=== PATIENT | male | born 1965 | race Caucasian/White ===

== ENCOUNTER 2024-07-27 02:59 | Day surgery (SDC) | payer OTHER, SELFPAY ==
[2024-07-15 13:53] VITALS: BMI 38.0
--- OUTSIDE RECORDS SUMMARY | 2024-07-27 03:01 | XMS_ITS | CONTINUITY OF CARE DOCUMENT ---
Author Name kyler, kyler Address Unknown Organization [facility] Address [address] [place] [address] Phone [phone] Care Team Providers Care Crayon Sawyer Name Role Phone Brinda BEJARANO, Shanita Unavailable Shanita Parry MD Unavailable PROBLEMS Condition Status Date Provider Notes Family History of Hyperlipidemia: completed - Shanita Parry MD Family History of Hypertension: completed - Shanita Parry MD Other symptoms involving cardiovascular system completed - Shanita Parry MD Palpitations active Shanita Parry MD PAC active Shanita Parry MD HTN essential active Shanita Parry MD Hyperlipidemia active Shanita Parry MD Anxiety active Shanita Parry MD Asthma active Shanita Parry MD GERD active Shanita Parry MD Sleep apnea active Shanita Parry MD ENCOUNTERS Date Type Provider Location Encounter Diag nosis 11/16 - 11/22 In-person encounter Office Visit Shanita Parry MD [facility] 11/11 - 11/18 In-person encounter Office Visit Shanita Parry MD [facility] 11/05 - 11/06 In-person encounter Office Visit Shanita Parry MD [place] [facility] 10/30 - 10/30 In-person encounter Office Visit Shanita Parry MD [facility] 10/31 - 11/01 In-person encounter Office Visit Shanita Parry MD [facility] Family History of Hyperlipidemia:Family History of Hypertension:Other symptoms involving cardiovascular systemSleep apnea 07/23 - 07/24 In-person encounter Office Visit Shanita Parry MD [facility] 05/30 - 05/30 In-person encounter Office Visit Shanita Parry MD [facility] 05/23 - 05/23 In-person encounter Office Visit Shanita Parry MD [facility] PalpitationsPACHTN essentialHyperlipidemiaAnxietyAsthmaGERDSleep apnea VITAL SIGNS Date Observation Value Provider Body Mass Index (Ratio) 34.00 kg/m2 Tasapna Cortes pulse rate 76 /min [facility] blood pressure, diastolic 88 mm[Hg] [facility] 140 mm[Hg] [facility], [facility] 98 % [facility] weight E&M 237 [lb_av] [facility] height E&M 70 [in_i] [facility] Body Mass Index (Ratio) 10.62 kg/m2 Winston Parry MD blood pressure, diastolic 100 mm[Hg] Er ica Sunny blood pressure, systolic 150 mm[Hg] María ca Sunny oxygen saturation, oximetry 98 % Sindi Correa pulse rate 74 /min Sindi Ray Brar weight E&M 74 [lb_av] Sindi Nish- Maykel height E&M 70 [in_i] Sindi Nish- Maykel Body Mass Index (Ratio) 35.29 kg/m2 Manolo Kirkpatrick blood pressure, diastolic 98 mm[Hg] Nsih Portillo blood pressure, systolic 136 mm[Hg] Kenny Portillo oxygen saturation, oximetry 98 % Xenia Portillo respiratory rate E&M 16 /min Xenia [facility] pulse rate 72 /min Xenia [facility] weight E&M 246 [lb_av] Xenia [facility] height E&M 70 [in_i] Xenia [facility] Body Mass Index (Ratio) 34.89 kg/m2 Winston Parry MD blood pressure, cuff size large Te [facility] blood pressure, diastolic 90 mm[Hg] Te [facility] blood pressure, systolic 132 mm[Hg] Brendon keshawn [facility] oxygen saturation, oximetry 97 % [facility] E&M 18 /min [facility] pulse rate 69 /min [facility] blood pressure, resting Yes Praveena usman Afsaneh weight E&M 243.2 [lb_av] Sydnee Frye debbie blood pressure, diastolic 91 mm[Hg] Me nubia Blood blood pressure, systolic 148 mm[Hg] Darcy Blood pulse rate 73 /min Ana Paula Blood oxygen saturation, oximetry 97 % Ana Paula Blood respiratory rate E&M 18 /min Ana Paula Jeremi Body Mass Index (Ratio) 34.58 kg/m2 Genie Blood weight E&M 241.0 [lb_av] Ana Paula Jeremi blood pressure, diastolic 97 mm[Hg] Me arenassa Jeremi blood pressure, systolic 153 mm[Hg] Darcy jonesa Jeremi pulse rate 63 /min Ana Paula Jeremi oxygen saturation, oximetry 99 % Ana Paula Jeremi respiratory rate E&M 18 /min Ana Paula Jeremi Body Mass Index (Ratio) 34.55 kg/m2 Genie Blood weight E&M 240.8 [lb_av] Ana Paula Blood blood pressure, diastolic 110 mm[Hg] Medhat Candelario blood pressure, systolic 160 mm[Hg] Catherine Candelario pulse rate 79 /min Matt Candelario oxygen saturation, oximetry 98 % Matt Candelario respiratory rate E&M 18 /min Matt Candelario Body Mass Index (Ratio) 35.15 kg/m2 Tom Candelario weight E&M 245 [lb_av] Matt Candelario blood pressure, diastolic 84 mm[Hg] ndralessandro Horsedebbie blood pressure, systolic 126 mm[Hg] Hong jelena Horsey pulse rate 66 /min Korina Horsey oxygen saturation, oximetry 98 % Korina Horsey respiratory rate E&M 16 /min Korina Horsey Body Mass Index (Ratio) 35.06 kg/m2 Brenda ra Horsey weight E&M 244.4 [lb_av] Korina Horsey height E&M 70 [in_i] Korina Horsey ALLERGIES Allergy Name Onset Date Reaction Criticality Status AUGMENTIN High Criticality active RESULTS Date Observation Value Provider Reference Range Interpretation Location 9 lipoprotein, beta, serum, point, quantitative, calculated 131 mg/dL [facility] 0-99 High 9 very low density lipoproteins 17 mg/dL [facility] 5-40 9 HDL cholesterol, serum 50 mg/dL [facility] >39 9 triglyceride, serum, random 85 mg/dL [facility] 0-149 9 cholesterol, serum 198 mg/dL [facility] 433-465 4944/07/2 9 alanine aminotransferase (SGPT), serum 12 1/L [facility] 0-44 9 aspartate aminotransferase (SGOT), serum 11 1/L [facility] 0-40 9 alkaline phosphatase, serum 52 1/L [facility] 39-117 9 bilirubin, serum, total 0.7 mg/dL [facility] 0.0-1.2 9 albumin/globulin ratio, serum 2.5 [facility] 1.2-2.2 High 9 globulin, serum 1.7 [facility] 1.5-4.5 9 albumin, serum 4.3 g/dL [facility] 3.8-4.9 9 protein, total, serum 6.0 g/dL [facility] 6.0-8.5 9 calcium, serum 9.6 mg/dL [facility] 8.7-10.2 9 carbon dioxide, venous blood 27 mmol/L [facility] 20-29 9 chloride, serum 103 mmol/L [facility] 96-106 9 potassium, serum 5.2 mmol/L [facility] 3.5-5.2 9 sodium, serum 142 mmol/L [facility] 656-233 2978/07/2 9 urea nitrogen/creatinine ratio, serum 19 [facility] 9-20 9 eGFR if 116 mL/min/{1 .73_m2} [facility] >59 9 eGFR if not 100 mL/min/{1 .73_m2} [facility] >59 9 creatinine, serum 0.84 mg/dL [facility] 0.76-1.27 9 urea nitrogen, blood 16 mg/dL [facility] 6-24 9 blood glucose, random 86 mg/dL [facility] 65-99 9 basophil count, absolute 0.1 x10E3/uL [facility] 0.0-0.2 9 Eosinophil Absolute Count 0.2 X10E3/UL [facility] 0.0-0.4 9 monocyte count, blood, automated 0.4 X10E3/UL [facility] 0.1-0.9 9 lymphocyte count, blood, automated 1.1 X10E3/UL [facility] 0.7-3.1 9 Absolute Neutrophils 2.8 X10E3/UL [facility] 1.4-7.0 9 basophils as percent of blood leukocytes 1 % [facility] Not Estab. 9 eosinophils as percent of blood leukocytes 4 % [facility] Not Estab. 9 monocytes as percent of blood leukocytes 10 % [facility] Not Estab. 9 lymphocytes as percent of blood leukocytes 25 % [facility] Not Estab. 9 neutrophils as percent of blood leukocytes 60 % [facility] Not Estab. 9 platelet count 245 X10E3/UL [facility] 985-211 3221/07/2 9 red blood cell distribution width 12.4 % [facility] 11.6-15.4 9 mean corpuscular hemoglobin concentration, RBC 32.4 G/DL [facility] 31.5-35.7 9 mean corpuscular hemoglobin, RBC 30.6 pg [facility] 26.6-33.0 9 mean corpuscular volume, RBC 95 fL [facility] 79-97 9 hematocrit, blood 44.4 % [facility] 37.5-51.0 9 hemoglobin, blood 14.4 g/dL [facility] 13.0-17.7 9 erythrocyte (RBC) count 4.70 X10E6/UL [facility] 4.14-5.80 9 leukocyte count, blood 4.6 X10E3/UL [facility] 3.4-10.8 HISTORY OF MEDICATION USE Medication Status Instructions Dates Provider Indications Com ments TYLENOL EXTRA STRENGTH 500 MG ORAL TABLET active 2 tabs prn 2 Doreen Block MAGNESIUM 400 MG ORAL CAPS completed one tablet twice daily - 2 Xenia Bandar MULTAQ 400 MG ORAL TABLET completed one tablet once daily - 2 Xenia Portillo MAGNESIUM OXIDE 400 MG ORAL TABLET completed ONE TAB TWICE A DAY 3 - 2 Ana Paula Blood FLECAINIDE 100MG completed Take one BID 3 - 2 Ana Paula Blood CELEBREX 200 MG ORAL CAPSULE completed 2 tablets prn - 2 Doreen Webb NASONEX SUSPENSION active 6 Korina Zimmer SYMBICORT 80-4.5 MCG/ACT INHALATION AEROSOL completed 2 puffs twice daily - 2 Ana Paula Blood CENTRUM ORAL TABLET completed 1 daily - 2 Xenia Portillo MONTELUKAST SODIUM 10 MG ORAL TABLET completed 1 daily - 2 Xenia Hunteruck LANSOPRAZOLE 30 MG ORAL CAPSULE DELAYED RELEASE active one tablet twice daily Ana Paula Blood ADULT ASPIRIN EC LOW STRENGTH 81 MG ORAL TABLET DELAYED RELEASE active 1 daily Korina Zimmer LOSARTAN POTASSIUM 50 MG ORAL TABLET active take one tab po once daily Xenia Portillo SOCIAL HISTORY Date Observation Value Provider Underweight no Herman Cortes social history E&M Regular Exerc ise - yes Smoking History: P jairo has never smoked. Herman Cortes social history reviewed E&M revi ewed - no changes required Herman Cortes smoking status Never smoker Doreen Venecia hodge Underweight yes Shanita hannon MD smoking status Never smoker Sindi Montenegro social history reviewed E&M revi ewed - no changes required Sindi Correa social history reviewed E&M revi ewed - no changes required Shanita Parry MD number of grandchildren Shanita Shelby social history reviewed E&M revi ewed - no changes required Hu Bridges social history E&M Regular Exerc ise - yes Smoking History: P jairo has never smoked. uH Bridges smoking status Never smoker Ana Paula Blood social history reviewed E&M revi ewed - no changes required Shanita Parry MD smoking status Never smoker Ana Paula Blood social history E&M Patient has n ever smoked. R egular Exercise - yes Smoking History: P atvalarie has never smoked. Shanita Parry MD social history reviewed E&M revi ewed - no changes required Shanita Parry MD smoking status Never smoker Shanita watts MD FAMILY HISTORY Family Member Condition Father Family History of Di abetes: Mother Family History of Hy pertension: Mother Family History of Hy perlipidemia: Mother Family History of Di abetes: Mother Family History Breas t Cancer: INSURANCE PROVIDERS Payer name Policy type / Coverage type Gia red democrat ID RANDAL\[facility] [id number] ADVANCE DIRECTIVES Name Date DISCUSSED - NO DECISION MADE TREATMENT PLAN Date Name Performer Electrophysiology : H is updated medication list for this problem includes: Adult Aspirin Ec Low Strength 81 Mg Oral Tablet Delayed Release (Aspirin) ..... 1 daily Losartan Potassium 50 Mg Oral Tablet (Losartan potassium) ..... Take one tab po once daily Orders: 9 9215 HIGH Complex (CPT-67594) C omplete Echo (CPT-85996) S chedule Followup (*) BP today: 140/88 P rior BP: 150/100 (11/11/2018) Labs Reviewed: C reat: 0.84 (11/03/2019) C hol: 198 (11/03/2019) HDL: 50 (11/03/2019) Herman Cortes Electrophysiology :C HOL: 198 (11/03/2019) HDL: 50 (11/03/2019) LDL: 131 (11/03/2019) Herman Cortes Electrophysiology : u ses inhaler prn O rders: F VC - 57488 (85323) F RC - 41140 (34731) D LCO - 89384 (63385) Herman Cortes Electrophysiology :H olter 11/10/2019 I nterpretation: Sinus Rhythm with Supraventricular Ectopics. T here was one run of Atrial Tachycardia noted, which run lasting 6.5 seconds with a max heart r ate of 139 BPM. T here were 2 SVE runs noted, which were 3 beats with the fastest run having a max heart rate o f 134 BPM. S upraventricular ectopy was documented in the form of pairs, 1 bigeminal cycle, trigeminal c ycles, runs, and isolated beats with a burden of 1.7%. T he average heart rate was 68 BPM. T he minimum heart rate was 48 BPM. T he maximum heart rate was 117 BPM. P atient Event Diary submitted with not symptoms noted His updated medication list for this problem includes: Adult Aspirin Ec Low Strength 81 Mg Oral Tablet Delayed Release (Aspirin) ..... 1 daily Herman Cortes Electrophysiology:LD L: 125 T otal cholesterol:201 H DL: 58 T SH: 1.6 O rders: C omplete Echo (CPT-14715) S chedule Followup (*) Shanita Parry MD Electrophysiology: H is updated medication list for this problem includes: Adult Aspirin Ec Low Strength 81 Mg Oral Tablet Delayed Release (Aspirin) ..... 1 daily Losartan Potassium 50 Mg Oral Tablet (Losartan potassium) ..... Take one tab po once daily Orders: 9 15 HIGH Complex (CPT-67519) C omplete Echo (CPT-81974) S chedule Followup (*) Shanita Parry MD Electrophysiology:Uses mouth dev ice Shanita Parry MD Electrophysiology:Uses inhaler P RN Shanita Parry MD Electrophysiology:Sy mptoms better with asthma meds. Please schedule a follow-up appointment with me and ava and 48 hr holter in 1 year. H is updated medication list for this problem includes: Adult Aspirin Ec Low Strength 81 Mg Oral Tablet Delayed Release (Aspirin) ..... 1 daily Shanita Parry MD Electrophysiology:TS H: 1.6, K: 4.2, creatinine: 0.78 H is updated medication list for this problem includes: Adult Aspirin Ec Low Strength 81 Mg Oral Tablet Delayed Release (Aspirin) ..... 1 daily Shanita Parry MD Electrophysiology: T he following medications were removed from the medication list: Multaq 400 Mg Oral Tablet (Dronedarone hcl) ..... One tablet once daily His updated medication list for this problem includes: Adult Aspirin Ec Low Strength 81 Mg Oral Tablet Delayed Release (Aspirin) ..... 1 daily Orders: E KG (CPT-02883) S chedule Followup (*) 9 9215 HIGH Complex (CPT-93489) H olter Monitor 24 Hr (CPT-94900) B ASIC METABOLIC PANEL W/EGFR (62376) L IPID PANEL (7600) Shanita Parry MD Electrophysiology: O rders: 9 9215 HIGH Complex (CPT-22352) H olter Monitor 24 Hr (CPT-53909) B ASIC METABOLIC PANEL W/EGFR (76617) B ASIC METABOLIC PANEL W/EGFR (79119) L IPID PANEL (7600) L IPID PANEL (7600) Shanita Parry MD Electrophysiology:BP today: 136/98 P rior BP: 132/90 (10/30/2016) His updated medication list for this problem includes: Adult Aspirin Ec Low Strength 81 Mg Oral Tablet Delayed Release (Aspirin) ..... 1 daily Losartan Potassium 50 Mg Oral Tablet (Losartan potassium) ..... Take one tab po once daily Shanita Parry MD Cardiology: B P today: 132/90 P rior BP: 148/91 (11/01/2015) Shanita Parry MD Cardiology: O rders: S leep Study (CPT-58724) Shanita Parry MD Cardiology:EKG today shows NSR. His updated medication list for this problem includes: Multaq 400 Mg Oral Tabs (Dronedarone hcl) ..... One tablet once daily Adult Aspirin Ec Low Strength 81 Mg Oral Tbec (Aspirin) ..... 1 daily Shanita Parry MD Cardiology faxed 10/06 12/21:BP today: 148/91 P rior BP: 153/97 (07/24/2015) His updated medication list for this problem includes: Adult Aspirin Ec Low Strength 81 Mg Oral Tbec (Aspirin) ..... 1 daily Losartan Potassium 25 Mg Oral Tabs (Losartan potassium) ..... 1 daily Hu Bridges Cardiology faxed 10/06 12/21:He prefers a dental device and we are arranging that. Hu Brid[facility] faxed 10/06 12/21: H is updated medication list for this problem includes: Multaq 400 Mg Oral Tabs (Dronedarone hcl) ..... One tablet once daily Adult Aspirin Ec Low Strength 81 Mg Oral Tbec (Aspirin) ..... 1 daily Shanita Parry MD Cardiology faxed 10/06 12/21: O rders: Tyesha KG (CPT-02380) S chedule Followup (*) Shanita Parry MD EP faxed 07/26/15:in 3 months with SK His updated medication list for this problem includes: Adult Aspirin Ec Low Strength 81 Mg Oral Tbec (Aspirin) ..... 1 daily Shanita Parry MD EP faxed 07/26/15:in 3 months with SK O rders: 9 9213 LTD. Complex (CPT-42226) Shanita Parry MD EP:Will start on Fle cainide 100mg BID and magnesium 400mg BID Caro Candelario REJECTOR EP:patient will be s tarted on CPAP at 5cmH2o and will see how he does, before he can have a titration study. Caro Candelario REJECTOR EP initial consult F axed 03/23/15 1046: B P today: 126/84 Shanita Parry MD Date Name DLCO - 71529 FRC - 66158 FVC - 49257 Complete Echo TSH, free T4, total T3 CBC (INCLUDES DIFF/P LT) COMPREHENSIVE METABO LIC PANEL, W/EGFR Holter Monitor 48 hr Complete Echo LIPID PANEL BASIC METABOLIC PANE L W/EGFR LIPID PANEL BASIC METABOLIC PANE L W/EGFR Holter Monitor 24 Hr Complete Echo Mobile Cardiac Tele Sleep Study DLCO - 85623 FRC - 24411 FVC - 32423 Complete Echo Holter Monitor 24 Hr Holter Monitor 24 Hr Holter Monitor 24 Hr Sleep Study Home HISTORY OF PROCEDURES Procedure Date Procedure Name Provider Procedure Notes S tatus FVC / MVV - 07466 Shanita marr MD completed FRC - 91255 Shanita jennings MD completed SpO2 w/o 6min walk/titration Shanita Parry MD completed DLCO - 21051 Shanita jennings MD completed Schedule Followup Shanita marr MD 1y SK completed EKG Shanita jennings MD completed Schedule Followup Shanita marr MD Please schedule a follow-up appointment with me and echo and 48 hr holter in 1 year. completed EKG Shanita jennings MD completed Schedule Followup Shanita marr MD in 1 yr completed EKG Shanita jennings MD completed Event Monitor Shanita jennings MD completed EKG Shanita jennings MD completed SNOMED-CT: 898899887154334 Current Medications Documented Shanita Parry MD completed Holter, 24 or 48 Shanita hannon MD completed Schedule Followup Shanita marr MD 1 year completed EKG Shaniat jennings MD completed SNOMED-CT: [id number] Current Medications Documented Shanita Parry MD completed Holter, 24 or 48 Shanita hannon MD completed Schedule Followup Shanita marr MD in 3 months with SK completed EKG Shanita jennings MD completed SNOMED-CT: [id number] Current Medications Documented ulius Brinda BEJARANO completed EKG Shanita jennings MD completed SNOMED-CT: 522608130196820 Current Medications Documented Saulius Kalvaitis MD completed SNOMED-CT: [id number] Physical Exam, Performed: Pulse Exam of Foot Shanita Parry MD completed EKG Shanita jennings MD completed SNOMED-CT: 434840554222462 Current Medications Documented Shanita Parry MD completed
--- OUTSIDE RECORDS SUMMARY | 2024-07-27 03:01 | XMS_ITS | Clinical Summary ---
Author Organization [address] [place] [address] Care Team Providers Care Parachute Supervisor Name Role Phone Unavailable Primary Care Provider Unavailabl e Allergies Active Allergy Reactions Criticality Noted Date Comments Amoxicillin-Pot Clavulanate Diarrhea 10/15/19 19 Medications losartan (COZAAR) 50 mg tablet 09/05/2018 Active lansoprazole (PREVACID) 30 mg Capsule, Delayed Release(E.C.) 09/05/2018 Activ e mometasone (NASONEX) 50 mcg/actuation [place], Non-Aerosol 10/13/2018 Active aspirin (WESTLEY CHEWABLE) 81 mg Tablet, Chewable Take 81 mg by mouth daily. Active Active Problems No known active problems Family History Medical History Relation Name Comments Diabetes Father Heart Attack Maternal Grandfather Breast Cancer Mother Diabetes Mother Relation Name Status Comments Father Maternal Grandfather Mother Social History Tobacco Use Types Packs/Day Years Used Date Smoking Tobacco: Never Smokeless Tobacco: Never Alcohol Use Standard Drinks/Week Comments Yes 0 (1 standard drink = 0.6 oz pur e alcohol) Sex and Gender Information Value Date Recorded Sex Assigned at Not on file Legal Sex Male 10:30 PM CDT Gender Identity Not on file Sexual Orientation Not on file Last Filed Vital Signs Vital Sign Reading Time Taken Comments Blood Pressure 139/94 10/14/2018 2:54 PM CDT Pulse 77 10/14/2018 2:54 PM CDT Temperature - - Respiratory Rate - - Oxygen Saturation - - Inhaled Oxygen Concentration - - Weight 115.3 kg (254 lb 3.2 oz) 10/14/2018 2:54 PM CDT Height 177.8 cm (5' 10 ) 10/14/2018 2:54 PM CDT Body Mass Index 36.47 10/14/2018 2:54 PM CDT Plan of Treatment Health Maintenance Due Date Last Done Comments DTAP/TDAP/TD VACCINES (1 - Tdap) 1985 HEPATITIS B VACCINES (1 of 3 - 19+ 3-dose series) 06/06 COLORECTAL SCREENING 07/02/2011 Colorectal Cancer Screening 07/02/2011 FIT-DNA Q 3 years 07/02/2011 FIT/FOBT Q 1 year 07/02/2011 Flex Sig/CT Colonography Q 5 years 07/02/2011 ZOSTER VACCINE (1 of 2) 2016 INFLUENZA VACCINE (#1) 2023 [facility]
--- OUTSIDE RECORDS SUMMARY | 2024-07-27 03:01 | XMS_ITS | Continuity of Care Document ---
Author Organization [facility] Address [address] Agustin [address] [place] [phone] Phone Care Team Providers Care Child Psychology Teacher Name Role Phone Adam BEJARANO FACS, Trevin Gallagher Unavailab le Allergies, Adverse Reactions, Alerts Substance Reaction Status Criticality No Known Allergies Active No Inform ation Medications Medication Instructions Dosage Effective Dates (start - stop) Status Comments Nasonex 50 mcg/actuation Bland spray 2 spray by intranasal route every day in each nostril - Active Patanol 0.1 % eye drops instill 1 drop by ophthalmic route 2 times every day into affected eye(s) at an interval of 6 to 8 hours - Active alprazolam 0.25 mg tablet take 1 tablet by oral route 3 times every day 0.25 MG - Active Magnesium (oxide/AA chelate) 300 mg capsule - Active Multaq 400 mg tablet take 1 tablet by oral route 2 times every day with morning and evening meals 400 MG - Active lansoprazole 30 mg capsule,delayed release take 1 capsule by oral route every day before a meal 30 MG - Active montelukast 10 mg tablet take 1 tablet by oral route every day in the evening 10 MG - Active losartan 25 mg tablet take 1 tablet by oral route every day 25 MG - Active aspirin 81 mg chewable tablet chew 1 tablet by oral route every day 81 MG - Active celecoxib 200 mg capsule take 1 capsule by oral route 2 times every day as needed 200 MG - Active PROAIR RESPICLICK (unknown strength) inhale 2 puff by inhalation route every 4 - 6 hours as needed Not Available - Active Procedures Procedure Date After Cataract Laser Surgery No Charge Refraction No Charge Optomap Fundus Photos 016 Eye Exam, New Patient Remove Cataract, Insert Lens Post-op Follow-up Visit Office Consultation [facility] Advance Directives Directive Yes / No Effective Date File Name No Information Encounters Encounter Description Practice Location Reason(s) For Visit Diagnoses Date Provider Providers Copied on Encounter [facility], [address] [place] [address] [address], [place], [place], [id number], tel:[phone] [facility] Professional Yag PC eval (chief complaint) Other secondary cataract, right eye Oct-201 6 Adam Trevin. [address] [place] [address] Sudiksha [facility], [address], [place], [place], [id number], [place]. tel:[phone] Referring Provider: Anastacio Castro OD, [address] [facility], [place], [address]. tel:[phone] [facility], [address] [place] [address] [address], [place], [place], [id number], tel:[phone] [facility] No Information May-0 9-200 8 Kyle Jordyn. [address] , [address], [place], [address], [place]. tel:[phone] Referring Provider: Anastacio Castro OD, [address] [facility], [place], [address]. tel:[phone] [facility], [address] [place] [address] [address], [place], [place], [id number], tel:[phone] [facility] No Information May-0 8-200 8 Staley OD Rafiq. [address] , [address], [place], [address], [place]. tel:[phone] Office Consultation [facility], [address], [place], [place], [id number], [place] tel:[phone] [facility] [place] No Information 9-200 8 Kyle Jordyn. [address], [address], [place], [address], [place]. tel:[phone] Family History Family Member Type Diagnosis Age At Onset Mother Problem (finding) Retinal disease Mother Problem (finding) glaucoma Mother Problem (finding) Diabetes mellitus Payers Payer name Insurance type Covered alliance party ID Authortara sanderson(s) [place] [id number] Social History Type Description Quantity Date Captured Comments Alcohol Use Details Caffeine Use Details coffee 2 cups per day Tobacco Use Status No Information Smoking Status Never smoker Non-Smoking Tobacco Use Details : No Details Available : No Details Available Sex Female Chief Complaint And Reason For Visit From encounter dated '01/16/2016 13:15'. Yag PC eval (chief complaint). Description: The 50 year old female presents for Yag PC eval in the right eye. Pt states VA blurry, like looking through a fog. Pt states difficult to drive at night due to headlight glare, having to get closer to street signs to see them clearly, difficult to see TV,and difficult to see small print. OD DV and NV gradual decrease, worse x 2-3mos. Pt uses Patanol OUQwks and AFT OU PRN. Reason For Referral Reason For Referral No Information History Of Present Illness Encounter Date Complaint History Of Prese nt Illness Yag PC eval The 50 year old female presents for Yag PC eval in the right eye. Pt states VA blurry, like looking through a fog. Pt states difficult to drive at night due to headlight glare, having to get closer to street signs to see them clearly, difficult to see TV, and difficult to see small print. OD DV and NV gradual decrease, worse x 2-3mos. Pt uses Patanol OU Qwks and AFT OU PRN. Functional Status Date Functional Assessmen t No Information Instructions Date Instruction Additional Infor andrea Impression/Plan - Di scussed diagnosis with patient. PCF is the cause of the patients visual complaints and YAG PC OD understood for treatment, will proceed with laser treatment today. Pt should return to referring in 2-4 weeks. Letter generated and sent to Dr. Castro Other secondary petar ract, right eye - Surgery advised; risks, benefits, alternatives discussed. Related to Other secondary cataract, right eye Assessments Type Assessment Date assessment Other secondary cataract, right eye Patient Care Teams Name Effective Dates (start - stop) Status Members No Information
--- OUTSIDE RECORDS SUMMARY | 2024-07-27 03:01 | XMS_ITS | Clinical Summary ---
Author Organization [facility] Address [address] [place] [address] Care Team Providers Care Corporate Aircraft Mechanic Name Role Phone Unavailable Primary Care Provider Unavailabl e Source Comments [facility],non-owned Affiliates and Associated Physician Practices is amultiple site organization consisting of ambulatory clinics and hospital sitesin [place], [place], [place] and [place]. This disclosure is being madepursuant to the Care Everywhere program and may not contain all information available regarding this patient. 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 Gender Identity Not on file Sexual Orientation Not on file Plan of Treatment Health Maintenance Due Date Last Done Comments COLOGUARD (AGES 45-75) - COL ON CA SCREENING 1966 COLON MONITORING 1966 COLONOSCOPY - COLON CA SCREENING 1966 CT COLONOGRAPHY - COLON CA SCREENING 1966 Colorectal Cancer Screening 1966 FIT - COLON CA SCREENING 1966 FLEX SIG - COLON CA SCREENING 1966 LIPID TESTING 1966 HIV SCREENING 1981 HEPATITIS C SCREENING 06/26/1984 DTAP/TDAP/TD VACCINES (1 - Tdap) 1985 HEPATITIS B VACCINE (1 of 3 - 19+ 3-dose series) 1985 PNEUMOCOCCAL VACCINE 50+ (1 of 1 - PCV) 2016 ZOSTER VACCINE (1 of 2) 2016 COVID-19 VACCINE ( - 2023-2 5 season) 2023 DEPRESSION SCREENING 04/07/2024 INFLUENZA VACCINE (Season Ended) 2024 HIB VACCINE Aged Out No longer eligi ble based on patient's age to complete this topic HPV VACCINE Aged Out No longer eligi ble based on patient's age to complete this topic MENINGOCOCCAL (Group B) VACC INE SHARED DECISION-MAKING Aged Out No longer eligibl e based on patient's age to complete this topic MENINGOCOCCAL GROUPS A/C/Y/W VACCINE Aged Out No longer eligible b ased on patient's age to complete this topic PNEUMOCOCCAL VACCINE Aged Out No long er eligible based on patient's age to complete this topic [facility]
--- OUTSIDE RECORDS SUMMARY | 2024-07-27 03:01 | XMS_ITS | Clinical Summary ---
Author Organization [facility] Address [facility] [place] [address] Care Team Providers Care Laundry Agent Name Role Phone Mago San Abraham [facility] Primary Care Provider + Social History Tobacco Use Types Packs/Day Years Used Date Smoking Tobacco: Never Assessed Sex and Gender Information Value Date Recorded Sex Assigned at Not on file Legal Sex Male 6:54 PM CDT Gender Identity Not on file Sexual Orientation Not on file Plan of Treatment Health Maintenance Due Date Last Done Comments Colorectal Cancer Screening Colonoscopy (10 Years) 1966 Annual Physical 1969 Hepatitis C 1984 Hepatitis B Vaccines (1 of 3 - 19+ 3-dose series) 1985 Pneumococcal Vaccine: 50+ Ye ars (1 of 1 - PCV) 2016 Zoster Vaccines (1 of 2) 2016 DTaP, Tdap and Td Vaccines ( 2 - Td or Tdap) 02/05/2022 02/06/2012 COVID-19 Vaccine ( - 2023-2 5 season) 2023 Meningococcal B Vaccine Aged Out No l onger eligible based on patient's age to complete this topic Meningococcal Vaccine Aged Out No jesus manuel deborah eligible based on patient's age to complete this topic RSV Immunizations Under 20 Months Aged Out No longer eligible based on patient's age to complete this topic Insurance [facility] Care Teams Laundry Agent Relationship Specialty Start Date End Date Mago San, TRANSIT MECHANIC- [address] [place] [phone] PCP - General NURSE PRACTITIONER 05/18/18
--- OUTSIDE RECORDS SUMMARY | 2024-07-27 03:02 | XMS_ITS | Data Portability ---
Author Organization [facility], Main Office Address [address] [place] [address] Care Team Providers Care Slate Trimmer Name Role Phone JALEEL KOENIG Primary Care Provider Assessment Encounter Date Assessment Date Assessment LastModified by Organization Details LastModified Time 08/13/2022 08/13/2022 colonoscopy due 2023 for the 6 yr fu. Not available 08/21/2022 07:27:41 Plan of Treatment Reminders Order Date Submit Date Provider Last Modified By Organization Details Last Modified Time Details Appointments None recorded. Lab HbA1c (hemoglobin A1c), blood 2023 024 [employer] [facility], [address], [address], 19:44:53 CMP, serum or plasma 2023 024 [employer] [facility], [address], [address], 19:44:51 TSH, serum or plasma 2023 024 [employer] [facility], [address] [employer] [address], [address], 4 19:44:52 CBC w/ auto diff 2023 024 [employer] [facility], [address], [address], 4 19:44:51 lipid panel, serum 2023 024 [facility], [address], [address], 4 19:44:50 PSA, serum or plasma 2023 024 [facility], [address], [address], 4 19:44:52 testosteron e, free + total, serum 2023 024 [facility], [address], [address], 4 19:44:50 TSH, serum or plasma [address] (Lab), [address] [place], [address], 3 08:48:00 TSH, serum or plasma 2022 023 [facility], [address], [address], 3 18:16:24 lipid panel, serum 2022 023 [facility], [address], [address], 3 18:16:20 CBC w/ auto diff [address] (Lab), [address] [place], [address], 3 08:47:59 CBC w/ auto diff 2022 023 [employer] [facility], [address], [address], 3 18:16:23 testosteron e, free + total, serum [address] (Lab), [address] [place], [address], 3 08:48:00 testosteron e, free + total, serum 2022 023 [employer] [facility], [address], [address], 3 18:16:21 glycohemogl obin, total, blood [address] (Lab), [address] [place], [address], 3 08:48:00 CMP, serum or plasma [address] (Lab), [address] [place], [address], 3 08:48:00 CMP, serum or plasma 2022 023 [employer] [facility], [address], [address], 3 18:16:22 HbA1c (hemoglobin A1c), blood 2022 023 [employer] [facility], [address], [address], 3 18:16:25 Referral orthopedic surgeon referral - Pain in left elbow and it's 'locking'. Injection? 2022 023 [email or web address], [address] [address] , [place] [address], [place], [address], 3 19:02:59 Procedures None recorded. Surgeries None recorded. Imaging polysomnogr am, split night - *Please call pt to schedule* 2023 024 [email or web address] [address] [facility] ([facility] [address] [place], [address], 4 09:42:15 Medication Orders ProAir HFA 90 mcg/actuati on aerosol inhaler 2023 024 [facility] [place], [address], 4 11:33:34 Symbicort 80 mcg-4.5 mcg/actuati on HFA aerosol inhaler 2023 024 [facility], [address], 4 11:29:35 losartan 50 mg tablet 2023 024 [facility], [address], 4 10:50:11 cyclobenzap rine 5 mg tablet [address] [facility], [address], 4 09:45:17 tramadol 50 mg tablet 2023 024 [id number], [address] [place], [place], [id number], 4 09:45:24 alprazolam 0.25 mg tablet [address] [facility], [address], 3 07:20:12 Symbicort 80 mcg-4.5 mcg/actuati on HFA aerosol inhaler 2022 023 [facility], [facility], [place] Quach, [address], 3 07:20:12 losartan 50 mg tablet [address] [facility], [facility], [place], [address], 3 07:20:09 Patient TargetsNo targets recorded. Patient Instructions Encounter Date Encounter Id Patient Instructions Last Modified By Organization Details Last Modified Time 08/13/2022 [id number] Fu in 6 mo for htn, joint pain, gerd, asthma, anxiety Not available 08/21/2022 07:27:08 Reason for Referral Orthopedic Surgeon Referral for Pain of left elbow joint Pain in left elbow and it's 'locking'. Injection? Referring Physician: Mago San, Family Medicine, Encounter Date: 08/13/2022 Results Created Date Observation Date Name Description Value Unit Range Abnormal Flag Note LastModifiedBy Organization Detail LastModifiedTime 02/08/2002/07/2021 HEMOG LOBIN A1C HA1C 5.5 % 4.0-6. 0 Diabe minnie Scree rylee Crite marii: <5.7% Consi stent with absen ce of diabe minnie 5.7-6 .4% Consi stent with incre ased risk for diabe minnie (pred iabet es) >OR=6 .5% Consi stent with diabe minnie REFER ENCE: Diabe minnie Care 2016, 39(Houser ppl.1 ):s13 -s22 Not Available [facility] (Lab) [address] [place], [address], 02/07/2021 15:07:19 02/08/20 21 02/07/2021 TSH W/REF CALI FT4 TSH with reflex free T4 1.530 uIU/m L 0.465- 4.680 Not Available [facility] (Lab) [address] [place], [address], 02/07/2021 14:58:00 02/08/20 21 02/07/2021 PSA SCREE N PSA medicare screen 0.97 NG/mL 0.00-4 .00 Not Available [facility] (Lab) [address] [place], [address], 02/07/2021 14:57:55 02/08/20 21 02/07/2021 COMPR EHENS MAINE METAB OLIC PANEL chloride 103 mmol/ L 98-107 Not Available [facility] (Lab) [address] [place], [address], 02/07/2021 14:11:10 02/08/20 21 02/07/2021 COMPR EHENS MAINE METAB OLIC PANEL carbon dioxide 30 mmol/ L 22-30 Not Available [facility] (Lab) [address] [place], [address], 02/07/2021 14:11:10 02/08/20 21 02/07/2021 COMPR EHENS MAINE METAB OLIC PANEL agap 11.6 mmol/ L 14-22 low Not Available [facility] (Lab) [address] [place], [address], 02/07/2021 14:11:10 02/08/20 21 02/07/2021 COMPR EHENS MAINE METAB OLIC PANEL glucose 92 mg/dL 70-99 Not Available [facility] (Lab) [address] [place], [address], 02/07/2021 14:11:10 02/08/20 21 02/07/2021 COMPR EHENS MAINE METAB OLIC PANEL BUN 18 mg/dL 8-19 Not Available [facility] (Lab) [address] [place], [address], 02/07/2021 14:11:10 02/08/20 21 02/07/2021 COMPR EHENS MAINE METAB OLIC PANEL creatinine 0.69 mg/dL 0.66-1 .25 Not Available [facility] (Lab) [address] [place], [address], 02/07/2021 14:11:10 02/08/20 21 02/07/2021 COMPR EHENS MAINE METAB OLIC PANEL GFR >60 Refer ence Range : Rogers ge GFR Healt hy Adult : >60 mL/mi n/1.7 3 m2 Chron ic Kidne y Disea se: 15-60 mL/mi n/1.7 3 m2 Kidne y Failu re: <15/m L/min /1.73 m2 www.n iddk. nih.g ov MDRD study equat ion hasn' t been valid ated in child tam <18 yrs of age, pregn ant women , the elder ly >85 yrs of age, or in some racia l or ethni c subgr oups, such as Hisla nics. Outsi de the valid ated paulina eters , estim ated GFR is less accur ate requi ring clini glenn judgm ent on a case by case basis . Clini glenn inter preta tion for other races and ages must be made by the clini vicki . Futhe rmore , any of the limit ation s with the use of serum creat inine relat ed to nutri cha l statu s or medic ation usage hasn' t accou nted for the MDRD Study equat ion. For perso ns <18 yrs of age, a pedia tric GFR calcu lator can be locat ed on the F websi te: https ://jackson w.kid sandy.o rg/pr ofess ional s/kdo qi/gf r_cal culat or Not Available [facility] (Lab) [address] [place], [address], 02/07/2021 14:11:10 02/08/20 21 02/07/2021 COMPR EHENS MAINE METAB OLIC PANEL alkaline phosphatase 58 U/L 38-126 Not Available [facility] (Lab) [address] [place], [address], 02/07/2021 14:11:10 02/08/20 21 02/07/2021 COMPR EHENS MAINE METAB OLIC PANEL alanine aminotransfe rase 23 U/L 0-50 Not Available [facility] (Lab) [address] [place], [address], 02/07/2021 14:11:10 02/08/20 21 02/07/2021 COMPR EHENS MAINE METAB OLIC PANEL aspartate aminotransfe rase 27 U/L 15-46 Not Available [facility] (Lab) [address] [place], [address], 02/07/2021 14:11:10 02/08/20 21 02/07/2021 COMPR EHENS MAINE METAB OLIC PANEL bilirubin, total 0.50 mg/dL 0.20-1 .30 Not Available [facility] (Lab) [address] [place], [address], 02/07/2021 14:11:10 02/08/20 21 02/07/2021 COMPR EHENS MAINE METAB OLIC PANEL calcium 9.4 mg/dL 8.4-10 .2 Not Available [facility] (Lab) [address] [place], [address], 02/07/2021 14:11:10 02/08/20 21 02/07/2021 COMPR EHENS MAINE METAB OLIC PANEL total protein 6.5 g/dL 6.3-8. 2 Not Available [facility] (Lab) [address] [place], [address], 02/07/2021 14:11:10 02/08/20 21 02/07/2021 COMPR EHENS MAINE METAB OLIC PANEL albumin 4.1 g/dL 3.4-5. 0 Not Available [facility] (Lab) [address] [place], [address], 02/07/2021 14:11:10 02/08/20 21 02/07/2021 COMPR EHENS MAINE METAB OLIC PANEL globulin 2.4 g/dL 2.6-4. 2 low Not Available [facility] (Lab) [address] [place], [address], 02/07/2021 14:11:10 02/08/20 21 02/07/2021 COMPR EHENS MAINE METAB OLIC PANEL A/G ratio 1.7 ratio 1.0-2. 0 Not Available [facility] (Lab) [address] [place], [address], 02/07/2021 14:11:10 02/08/20 21 02/07/2021 COMPR EHENS MAINE METAB OLIC PANEL sodium 140 mmol/ L 137-14 5 Not Available [facility] (Lab) [address] [place], [address], 02/07/2021 14:11:10 02/08/20 21 02/07/2021 COMPR EHENS MAINE METAB OLIC PANEL potassium 4.6 mmol/ L 3.5-5. 1 Not Available [facility] (Lab) [address] [place], [address], 02/07/2021 14:11:10 02/08/20 21 02/07/2021 LIPID PANEL cholesterol 209 mg/dL 140-19 9 high NIH ROSSY NSUS RECOM MENDA TION FOR SHERICE STERO L: ADULT CHILD LOW RISK: <200 <170 BORDE RLINE : <200- 239 ----- HIGH RISK: >240 >200 Not Available [facility] (Lab) [address] [place], [address], 02/07/2021 14:11:05 02/08/20 21 02/07/2021 LIPID PANEL triglyceride s 59 mg/dL 0-150 NIH ROSSY NSUS REPOR T RECOM MENDA TION FOR TRIGL YCERI JILLIAN: ADULT CHILD LOW RISK: <150 ----- BODER LINE: 150-1 99 ----- HIGH RISK: >200 ----- Not Available [facility] (Lab) [address] [place], [address], 02/07/2021 14:11:05 02/08/20 21 02/07/2021 LIPID PANEL HDL cholesterol 57 mg/dL 40- Not Available [facility] (Lab) [address] [place], [address], 02/07/2021 14:11:05 02/08/20 21 02/07/2021 LIPID PANEL LDL cholesterol, calculated 140 mg/dL 0-130 high NIH ROSSY NSUS REPOR T RECOM MENDA TIONS FOR LDL: ADULT CHILD LOW RISK <130 <110 (OPTI MAL LDL) <100 ----- BORDE RLINE : 130-1 59 ----- HIGH RISK: >160 >130 A TRIGL YCERI DE RESUL T >400 INVAL IDATE S THE CALCU LATIO N FOR LDL FRACT IONAT ION - THE LDL RESUL T WILL NOT BE REPOR MACO. Not Available [facility] (Lab) [address] [place], [address], 02/07/2021 14:11:05 02/08/20 21 02/07/2021 CBC/C OMPLE TE BLD COUNT W/DIF F white blood cells 5.0 x10'3 /uL 4.2-10 .8 Not Available [facility] (Lab) [address] [place], [address], 02/07/2021 13:56:59 02/08/20 21 02/07/2021 CBC/C OMPLE TE BLD COUNT W/DIF F red blood cells 4.92 x10'6 /uL 4.10-5 .80 Not Available [facility] (Lab) [address] [place], [address], 02/07/2021 13:56:59 02/08/20 21 02/07/2021 CBC/C OMPLE TE BLD COUNT W/DIF F hemoglobin 15.1 g/dL 13.2-1 7.0 Not Available [facility] (Lab) [address] [place], [address], 02/07/2021 13:56:59 02/08/20 21 02/07/2021 CBC/C OMPLE TE BLD COUNT W/DIF F hematocrit 45.8 % 39.3-5 0.0 Not Available [facility] (Lab) [address] [place], [address], 02/07/2021 13:56:59 02/08/20 21 02/07/2021 CBC/C OMPLE TE BLD COUNT W/DIF F mean red cell volume 93.1 fL 80.0-9 7.0 Not Available [facility] (Lab) [address] [place], [address], 02/07/2021 13:56:59 02/08/20 21 02/07/2021 CBC/C OMPLE TE BLD COUNT W/DIF F mean red cell hemoglobin 30.7 pg 27.0-3 3.0 Not Available [facility] (Lab) [address] [place], [address], 02/07/2021 13:56:59 02/08/20 21 02/07/2021 CBC/C OMPLE TE BLD COUNT W/DIF F mean RBC HGB concentratio n 33.0 g/dL 31.0-3 6.0 Not Available [facility] (Lab) [address] [place], [address], 02/07/2021 13:56:59 02/08/20 21 02/07/2021 CBC/C OMPLE TE BLD COUNT W/DIF F red cell distribution width 13.2 % 11.8-1 5.5 Not Available [facility] (Lab) [address] [place], [address], 02/07/2021 13:56:59 02/08/20 21 02/07/2021 CBC/C OMPLE TE BLD COUNT W/DIF F platelets 235 x10'3 /uL 150-40 0 Not Available [facility] (Lab) [address] [place], [address], 02/07/2021 13:56:59 02/08/20 21 02/07/2021 CBC/C OMPLE TE BLD COUNT W/DIF F mean platelet volume 10.2 fL 9.0-12 .4 Not Available [facility] (Lab) [address] [place], [address], 02/07/2021 13:56:59 02/08/2002/07/2021 CBC/C OMPLE TE BLD COUNT W/DIF F neutrophils 54.5 % 39.0-7 2.0 Not Available [facility] (Lab) [address] [place], [address], 02/07/2021 13:56:59 02/08/2002/07/2021 CBC/C OMPLE TE BLD COUNT W/DIF F lymphocytes 27.3 % 16.0-4 7.0 Not Available [facility] (Lab) [address] [place], [address], 02/07/2021 13:56:59 02/08/2002/07/2021 CBC/C OMPLE TE BLD COUNT W/DIF F monocytes 11.0 % 5.0-12 .0 Not Available [facility] (Lab) [address] [place], [address], 02/07/2021 13:56:59 02/08/20 21 02/07/2021 CBC/C OMPLE TE BLD COUNT W/DIF F eosinophils 5.6 % 1.0-7. 0 Not Available [facility] (Lab) [address] [place], [address], 02/07/2021 13:56:59 02/08/20 21 02/07/2021 CBC/C OMPLE TE BLD COUNT W/DIF F basophils 1.4 % 0.0-2. 0 Not Available [facility] (Lab) [address] [place], [address], 02/07/2021 13:56:59 02/08/20 21 02/07/2021 CBC/C OMPLE TE BLD COUNT W/DIF F immature granulocytes 0.2 % 0.00-0 .50 Not Available [facility] (Lab) [address] [place], [address], 02/07/2021 13:56:59 02/08/20 21 02/07/2021 CBC/C OMPLE TE BLD COUNT W/DIF F neutrophils, absolute count 2.73 x10'3 /uL 1.5-8. 0 Not Available [facility] (Lab) [address] [place], [address], 02/07/2021 13:56:59 02/08/20 21 02/07/2021 CBC/C OMPLE TE BLD COUNT W/DIF F lymphocytes, absolute count 1.37 x10'3 /uL 1.07-3 .43 Not Available [facility] (Lab) [address] [place], [address], 02/07/2021 13:56:59 02/08/20 21 02/07/2021 CBC/C OMPLE TE BLD COUNT W/DIF F monocytes, absolute count 0.55 x10'3 /uL 0.29-0 .99 Not Available [facility] (Lab) [address] [place], [address], 02/07/2021 13:56:59 02/08/20 21 02/07/2021 CBC/C OMPLE TE BLD COUNT W/DIF F eosinophils, absolute count 0.28 x10'3 /uL 0.02-0 .53 Not Available [facility] (Lab) [address] [place], [address], 02/07/2021 13:56:59 02/08/20 21 02/07/2021 CBC/C OMPLE TE BLD COUNT W/DIF F basophils, absolute count 0.07 x10'3 /uL 0.01-0 .08 Not Available [facility] (Lab) [address] [place], [address], 02/07/2021 13:56:59 02/08/20 21 02/07/2021 CBC/C OMPLE TE BLD COUNT W/DIF F immature granulocytes ,absolute 0.01 x10'3 /uL 0.00-0 .05 Not Available [facility] (Lab) [address] [place], [address], 02/07/2021 13:56:59 02/08/20 21 02/07/2021 CBC/C OMPLE TE BLD COUNT W/DIF F nucleated red blood cells 0.0 % -0 Not Available [facility] (Lab) [address] [place], [address], 02/07/2021 13:56:59 02/08/20 21 02/07/2021 CBC/C OMPLE TE BLD COUNT W/DIF F NRBC# 0.00 x10'3 /uL Not Available [facility] (Lab) [address] [place], [address], 02/07/2021 13:56:59 08/23/19 23 08/26/2022 LIPID PANEL , STAND GERRI cholesterol, total 203 mg/dL <200 high Not Available [employer] [facility] [address] [place], [place] [address], [address], 08/26/2022 18:16:20 08/23/19 23 08/26/2022 LIPID PANEL , STAND GERRI HDL cholesterol 57 mg/dL > or = 40 normal Not Available [employer] [facility] [address] [place] [address], [address], 08/26/2022 18:16:20 08/23/19 23 08/26/2022 LIPID PANEL , STAND GERRI triglyceride s 128 mg/dL <150 normal Not Available [address], [address], 08/26/2022 18:16:20 08/23/19 23 08/26/2022 LIPID PANEL , STAND GERRI LDL-choleste rol 122 mg/dL _(glenn c) high Refer ence range : <100 Rojas able range <100 mg/dL for prima ry preve ntion ; <70 mg/dL for patie nts with CHD or diabe tic patie nts with > or = 2 CHD risk facto rs. LDL-C is now calcu lated using the Debra n-Hop kins calcu danielle n, which is a valid ated novel metho d provi ding eleanor r accur acy than the Fried jose equat ion in the estim ation of LDL-C . Debra rich SS et al. EDIL. 2013; 310(1 9): 2061- 2068 (http ://ed ucati on.Qu [employer]. Rent.com/f aq/FA Q164) Not Available [address] [address] [place], [address], 08/26/2022 18:16:20 08/23/19 23 08/26/2022 LIPID PANEL , STAND GERRI chol/HDLC ratio 3.6 (calc ) <5.0 normal Not Available [employer] [address] [place] [address] [place], [address], 08/26/2022 18:16:20 08/23/19 23 08/26/2022 LIPID PANEL , STAND GERRI non HDL cholesterol 146 mg/dL _(glenn c) <130 high For patie nts with diabe minnie plus 1 major ASCVD risk facto r, treat ing to a non-H DL-C goal of <100 mg/dL (LDL- C of <70 mg/dL ) is consi dered a thera peuti c optio n. Not Available [employer] [facility] [address] [place], [address], 08/26/2022 18:16:20 08/23/19 23 08/26/2022 TESTO STERO NE, FREE, BIOAV AILAB LE AND TOTAL , MS albumin 4.1 g/dL 3.6-5. 1 Not Available [address], [address], 08/26/2022 18:16:21 08/23/19 23 08/26/2022 TESTO STERO NE, FREE, BIOAV AILAB LE AND TOTAL , MS sex hormone binding globulin 32.2 nmol/ L - Not Available [address], [address], 08/26/2022 18:16:21 08/23/19 23 08/26/2022 TESTO STERO NE, FREE, BIOAV AILAB LE AND TOTAL , MS testosterone , free 35.9 pg/mL 46.0-2 24.0 low Not Available [address], [address], 08/26/2022 18:16:21 08/23/19 23 08/26/2022 TESTO STERO NE, FREE, BIOAV AILAB LE AND TOTAL , MS testosterone ,bioavailabl e 67.5 NG/dL 110.0- 575.0 low Not Available [address], [address], 08/26/2022 18:16:21 08/23/19 23 08/26/2022 TESTO STERO NE, FREE, BIOAV AILAB LE AND TOTAL , MS testosterone , total, MS 273 NG/dL 250-11 00 Men with clini manuel signi fican t hypog onada l sympt oms and testo stero ne value s repea tedly in the range of the 200-3 00 ng/dL or less, may benef it from testo stero ne treat ment after adequ ate risk and benef its couns eling . For addit ional infor maritza brandt e refer to https ://ed ucati on.qu miles jesúsos tics. com/f aq/FA Q165 (This link is being provi ded for infor matio nal/e ducat ional purpo ses only. ) (Note ) This test was devel tanvi and its artemio tical perfo rmanc e suzette cteri stics have been deter mined by [employer]. It has not been clear ed or appro evie by the FDA. This assay has been valid ated pursu ant to the CLIA regul ation s and is used for clini glenn purpo ses. F med fusio n [address] [facility] [address] [facility] [address] [phone] James lamar MD Not Available [address] [address] [place], [address], 08/26/2022 18:16:21 08/23/19 23 08/26/2022 COMPR EHENS MAINE METAB OLIC PANEL glucose 76 mg/dL 65-99 normal Fasti ng refer ence inter marcella Not Available [facility] [address] [address] [place], [address], 08/26/2022 18:16:22 08/23/19 23 08/26/2022 COMPR EHENS MAINE METAB OLIC PANEL urea nitrogen (BUN) 20 mg/dL 7-25 normal Not Available [facility] [address], [address], 08/26/2022 18:16:22 08/23/19 23 08/26/2022 COMPR EHENS MAINE METAB OLIC PANEL creatinine 0.79 mg/dL 0.70-1 .30 normal Not Available [facility] [address] [address] [place], [address], 08/26/2022 18:16:22 08/23/19 23 08/26/2022 COMPR EHENS MAINE METAB OLIC PANEL eGFR 104 mL/mi n/1.7 3m2 > or = 60 normal The eGFR is based on the CKD-E PI 2020 equat ion. To calcu late the new eGFR from a previ ous Creat inine or Cysta tin C resul t, go to https ://jackson delgado.cristal vyas/sherif linderess ional s/ kdoqi /gfr% 5Fcal culat or Not Available [address], [address], 08/26/2022 18:16:22 08/23/19 23 08/26/2022 COMPR EHENS MAINE METAB OLIC PANEL BUN/creatini ne ratio NOT APPLIC ABLE (calc ) 6-22 Not Available [address], [address], 08/26/2022 18:16:22 08/23/19 23 08/26/2022 COMPR EHENS MAINE METAB OLIC PANEL sodium 140 mmol/ L 135-14 6 normal Not Available [address], [address], 08/26/2022 18:16:22 08/23/19 23 08/26/2022 COMPR EHENS MAINE METAB OLIC PANEL potassium 4.3 mmol/ L 3.5-5. 3 normal Not Available [address], [address], 08/26/2022 18:16:22 08/23/19 23 08/26/2022 COMPR EHENS MAINE METAB OLIC PANEL chloride 104 mmol/ L 98-110 normal Not Available [address], [address], 08/26/2022 18:16:22 08/23/19 23 08/26/2022 COMPR EHENS MAINE METAB OLIC PANEL carbon dioxide 29 mmol/ L 20-32 normal Not Available [address], [address], 08/26/2022 18:16:22 08/23/19 23 08/26/2022 COMPR EHENS MAINE METAB OLIC PANEL calcium 9.0 mg/dL 8.6-10 .3 normal Not Available [address], [address], 08/26/2022 18:16:22 08/23/19 23 08/26/2022 COMPR EHENS MAINE METAB OLIC PANEL protein, total 6.0 g/dL 6.1-8. 1 low Not Available [address], [address], 08/26/2022 18:16:22 08/23/19 23 08/26/2022 COMPR EHENS MAINE METAB OLIC PANEL albumin 4.1 g/dL 3.6-5. 1 normal Not Available [address], [address], 08/26/2022 18:16:22 08/23/19 23 08/26/2022 COMPR EHENS MAINE METAB OLIC PANEL globulin 1.9 g/dL_ (calc ) 1.9-3. 7 normal Not Available [employer] [address], [address], 08/26/2022 18:16:22 08/23/19 23 08/26/2022 COMPR EHENS MAINE METAB OLIC PANEL albumin/glob ulin ratio 2.2 (calc ) 1.0-2. 5 normal Not Available [address], [address], 08/26/2022 18:16:22 08/23/19 23 08/26/2022 COMPR EHENS MAINE METAB OLIC PANEL bilirubin, total 0.7 mg/dL 0.2-1. 2 normal Not Available [address], [address], 08/26/2022 18:16:22 08/23/19 23 08/26/2022 COMPR EHENS MAINE METAB OLIC PANEL alkaline phosphatase 51 U/L 35-144 normal Not Available [facility] [employer] [address] [place], [address], 08/26/2022 18:16:22 08/23/19 23 08/26/2022 COMPR EHENS MAINE METAB OLIC PANEL AST 14 U/L 10-35 normal Not Available [address], [address], 08/26/2022 18:16:22 08/23/19 23 08/26/2022 COMPR EHENS MAINE METAB OLIC PANEL ALT 16 U/L 9-46 normal Not Available [address], [address], 08/26/2022 18:16:22 08/23/19 23 08/26/2022 CBC (INCL UDES DIFF/ PLT) white blood cell count 5.1 thous and/u L 3.8-10 .8 normal Not Available [address], [address], 08/26/2022 18:16:23 08/23/19 23 08/26/2022 CBC (INCL UDES DIFF/ PLT) red blood cell count 4.83 katelyn on/uL 4.20-5 .80 normal Not Available [address], [address], 08/26/2022 18:16:23 08/23/19 23 08/26/2022 CBC (INCL UDES DIFF/ PLT) hemoglobin 15.2 g/dL 13.2-1 7.1 normal Not Available [address], [address], 08/26/2022 18:16:23 08/23/19 23 08/26/2022 CBC (INCL UDES DIFF/ PLT) hematocrit 46.3 % 38.5-5 0.0 normal Not Available [address], [address], 08/26/2022 18:16:23 08/23/19 23 08/26/2022 CBC (INCL UDES DIFF/ PLT) MCV 95.9 fL 80.0-1 00.0 normal Not Available [address], [address], 08/26/2022 18:16:23 08/23/19 23 08/26/2022 CBC (INCL UDES DIFF/ PLT) MCH 31.5 pg 27.0-3 3.0 normal Not Available [address], [address], 08/26/2022 18:16:23 08/23/19 23 08/26/2022 CBC (INCL UDES DIFF/ PLT) MCHC 32.8 g/dL 32.0-3 6.0 normal Not Available [address], [address], 08/26/2022 18:16:23 08/23/19 23 08/26/2022 CBC (INCL UDES DIFF/ PLT) RDW 12.5 % 11.0-1 5.0 normal Not Available [address], [address], 08/26/2022 18:16:23 08/23/19 23 08/26/2022 CBC (INCL UDES DIFF/ PLT) platelet count 247 thous and/u L 140-40 0 normal Not Available [address], [address], 08/26/2022 18:16:23 08/23/19 23 08/26/2022 CBC (INCL UDES DIFF/ PLT) MPV 9.7 fL 7.5-12 .5 normal Not Available [address], [address], 08/26/2022 18:16:23 08/23/19 23 08/26/2022 CBC (INCL UDES DIFF/ PLT) absolute neutrophils 2825 cells /uL 1500-7 800 normal Not Available [address], [address], 08/26/2022 18:16:23 08/23/19 23 08/26/2022 CBC (INCL UDES DIFF/ PLT) absolute lymphocytes 1556 cells /uL 850-39 00 normal Not Available [address], [address], 08/26/2022 18:16:23 08/23/19 23 08/26/2022 CBC (INCL UDES DIFF/ PLT) absolute monocytes 428 cells /uL 200-95 0 normal Not Available [address], [address], 08/26/2022 18:16:23 08/23/19 23 08/26/2022 CBC (INCL UDES DIFF/ PLT) absolute eosinophils 219 cells /uL 15-500 normal Not Available [address], [address], 08/26/2022 18:16:23 08/23/19 23 08/26/2022 CBC (INCL UDES DIFF/ PLT) absolute basophils 71 cells /uL 0-200 normal Not Available [address], [address], 08/26/2022 18:16:23 08/23/19 23 08/26/2022 CBC (INCL UDES DIFF/ PLT) neutrophils 55.4 % normal Not Available [address], [address], 08/26/2022 18:16:23 08/23/19 23 08/26/2022 CBC (INCL UDES DIFF/ PLT) lymphocytes 30.5 % normal Not Available [address], [address], 08/26/2022 18:16:23 08/23/19 23 08/26/2022 CBC (INCL UDES DIFF/ PLT) monocytes 8.4 % normal Not Available [address] [address] [place], [address], 08/26/2022 18:16:23 08/23/19 23 08/26/2022 CBC (INCL UDES DIFF/ PLT) eosinophils 4.3 % normal Not Available [facility] [address] [address] [place], [address], 08/26/2022 18:16:23 08/23/19 23 08/26/2022 CBC (INCL UDES DIFF/ PLT) basophils 1.4 % normal Not Available [facility] [address] [address] [place], [address], 08/26/2022 18:16:23 08/23/19 23 08/26/2022 TSH W/REF CALI TO FT4 TSH w/reflex to FT4 2.03 mIU/L 0.40-4 .50 normal Not Available [facility] [address], [address], 08/26/2022 18:16:24 08/23/1908/26/2022 HEMOG LOBIN A1C hemoglobin A1C 5.2 %_of_ total _HGB <5.7 normal For the purpo se of lee mckee for the prese nce of diabe minnie: <5.7% Consi stent with the absen ce of diabe minnie 5.7-6 .4% Consi stent with incre ased risk for diabe minnie (pred iabet es) > or =6.5% Consi stent with diabe minnie This assay resul t is consi stent with a decre ased risk of diabe minnie. Curre ntly, no conse nsus exist s jareth saab use of hemog lobin A1c for diagn osis of diabe minnie in child tam. Accor ding to Ameri can Diabe minnie Assoc iatio n (ADA) guide lines , hemog lobin A1c <7.0% repre sents optim al contr ol in non-p regna nt diabe tic patie nts. Diffe rent metri cs may apply to speci fic patie nt popul ation s. Stand ards of Medic al Care in Diabe minnie(A DA). Not Available [facility] [address] [place], [address], 08/26/2022 18:16:24 09/24/19 24 09/27/2023 LIPID PANEL , STAND GERRI cholesterol, total 203 mg/dL <200 high Not Available [facility] [address] [place], [address], 09/27/2023 19:44:49 09/24/19 24 09/27/2023 LIPID PANEL , STAND GERRI HDL cholesterol 55 mg/dL > or = 40 normal Not Available [facility] [address] [address] [place], [address], 09/27/2023 19:44:49 09/24/19 24 09/27/2023 LIPID PANEL , STAND GERRI triglyceride s 73 mg/dL <150 normal Not Available [facility] [address] [address] [address], [place], [address], 09/27/2023 19:44:49 09/24/19 24 09/27/2023 LIPID PANEL , STAND GERRI LDL-choleste rol 131 mg/dL _(glenn c) high Refer ence range : <100 Rojas able range <100 mg/dL for prima ry preve ntion ; <70 mg/dL for patie nts with CHD or diabe tic patie nts with > or = 2 CHD risk facto rs. LDL-C is now calcu lated using the Debra n-Hop kins calcu danielle n, which is a valid ated novel metho d provi kaiser meyerte r accur acy than the Fried jose equat ion in the estim ation of LDL-C . Debra rich SS et al. EDIL. 2013; 310(1 9): 2061- 2068 (http ://ed ucati on.Qu adrianaDi Structured Polymerss. com/f aq/FA Q164) Not Available [facility] [address] [place], [address], 09/27/2023 19:44:49 09/24/19 24 09/27/2023 LIPID PANEL , STAND GERRI chol/HDLC ratio 3.7 (calc ) <5.0 normal Not Available [address], [address], 09/27/2023 19:44:49 09/24/19 24 09/27/2023 LIPID PANEL , STAND GERRI non HDL cholesterol 148 mg/dL _(glenn c) <130 high For patie nts with diabe minnie plus 1 major ASCVD risk facto r, treat ing to a non-H DL-C goal of <100 mg/dL (LDL- C of <70 mg/dL ) is erendira pabono n. Not Available [address], [address], 09/27/2023 19:44:49 09/24/19 24 09/27/2023 TESTO STERO NE, FREE, BIOAV AILAB LE AND TOTAL , MS albumin 4.4 g/dL 3.6-5. 1 Not Available [address], [address], 09/27/2023 19:44:50 09/24/19 24 09/27/2023 TESTO STERO NE, FREE, BIOAV AILAB LE AND TOTAL , MS sex hormone binding globulin 33.4 nmol/ L 22-77 Not Available [address], [address], 09/27/2023 19:44:50 09/24/19 24 09/27/2023 TESTO STERO NE, FREE, BIOAV AILAB LE AND TOTAL , MS testosterone , free 40.5 pg/mL 46.0-2 24.0 low Not Available [address], [address], 09/27/2023 19:44:50 09/24/19 24 09/27/2023 TESTO STERO NE, FREE, BIOAV AILAB LE AND TOTAL , MS testosterone ,bioavailabl e 81.6 NG/dL 110.0- 575.0 low Not Available [facility] [address] [place], [address], 09/27/2023 19:44:50 09/24/19 24 09/27/2023 TESTO STERO NE, FREE, BIOAV AILAB LE AND TOTAL , MS testosterone , total, MS 319 NG/dL 250-11 00 Men with clini manuel signi fican t hypog onada l sympt oms and testo stero ne value s repea tedly in the range of the 200-3 00 ng/dL or less, may benef it from testo stero ne treat ment after adequ ate risk and benef its couns eling . For addit ional infor maritza brandt e refer to https ://ed ucati on.qu Onavo. Rent.com/f aq/FA Q165 (This link is being provi ded for infor mattucker nal/e ducat ional purpo ses only. ) (Note ) This test was devel oped and its artemio tical perfo rmanc e suzette cteri stics have been deter mined by [employer]. It has not been clear ed or appro evie by the FDA. This assay has been valid ated pursu ant to the CLIA regul ation s and is used for clini glenn purpo ses. MDF med fusio n [address] [facility] [address] [facility] [address] [phone] Louie Rojas MD, PhD Not Available [facility] [address] [place], [address], 09/27/2023 19:44:50 09/24/1909/27/2023 COMPR EHENS MAINE METAB OLIC PANEL glucose 89 mg/dL 65-99 normal Fasti ng refer ence inter marcella Not Available [facility] [address] [place], [address], 09/27/2023 19:44:51 09/24/19 24 09/27/2023 COMPR EHENS MAINE METAB OLIC PANEL urea nitrogen (BUN) 17 mg/dL 7-25 normal Not Available [address], [address], 09/27/2023 19:44:51 09/24/19 24 09/27/2023 COMPR EHENS MAINE METAB OLIC PANEL creatinine 0.78 mg/dL 0.70-1 .30 normal Not Available [address], [address], 09/27/2023 19:44:51 09/24/19 24 09/27/2023 COMPR EHENS MAINE METAB OLIC PANEL eGFR 104 mL/mi n/1.7 3m2 > or = 60 normal Not Available [address], [address], 09/27/2023 19:44:51 09/24/19 24 09/27/2023 COMPR EHENS MAINE METAB OLIC PANEL BUN/creatini ne ratio SEE NOTE: (calc ) 6-22 Not Repor maco: BUN and Creat inine are withi n refer ence range . Not Available [address], [address], 09/27/2023 19:44:51 09/24/19 24 09/27/2023 COMPR EHENS MAINE METAB OLIC PANEL sodium 139 mmol/ L 135-14 6 normal Not Available [address], [address], 09/27/2023 19:44:51 09/24/19 24 09/27/2023 COMPR EHENS MAINE METAB OLIC PANEL potassium 4.4 mmol/ L 3.5-5. 3 normal Not Available [address], [address], 09/27/2023 19:44:51 09/24/19 24 09/27/2023 COMPR EHENS MAINE METAB OLIC PANEL chloride 104 mmol/ L 98-110 normal Not Available [address], [address], 09/27/2023 19:44:51 09/24/19 24 09/27/2023 COMPR EHENS MAINE METAB OLIC PANEL carbon dioxide 29 mmol/ L 20-32 normal Not Available [address], [address], 09/27/2023 19:44:51 09/24/19 24 09/27/2023 COMPR EHENS MAINE METAB OLIC PANEL calcium 9.0 mg/dL 8.6-10 .3 normal Not Available [address], [address], 09/27/2023 19:44:51 09/24/19 24 09/27/2023 COMPR EHENS MAINE METAB OLIC PANEL protein, total 6.3 g/dL 6.1-8. 1 normal Not Available [address], [address], 09/27/2023 19:44:51 09/24/19 24 09/27/2023 COMPR EHENS MAINE METAB OLIC PANEL albumin 4.4 g/dL 3.6-5. 1 normal Not Available [address], [address], 09/27/2023 19:44:51 09/24/19 24 09/27/2023 COMPR EHENS MAINE METAB OLIC PANEL globulin 1.9 g/dL_ (calc ) 1.9-3. 7 normal Not Available [address], [address], 09/27/2023 19:44:51 09/24/19 24 09/27/2023 COMPR EHENS MAINE METAB OLIC PANEL albumin/glob ulin ratio 2.3 (calc ) 1.0-2. 5 normal Not Available [address], [address], 09/27/2023 19:44:51 09/24/19 24 09/27/2023 COMPR EHENS MAINE METAB OLIC PANEL bilirubin, total 0.7 mg/dL 0.2-1. 2 normal Not Available [address], [address], 09/27/2023 19:44:51 09/24/19 24 09/27/2023 COMPR EHENS MAINE METAB OLIC PANEL alkaline phosphatase 53 U/L 35-144 normal Not Available [address], [address], 09/27/2023 19:44:51 09/24/19 24 09/27/2023 COMPR EHENS MAINE METAB OLIC PANEL AST 15 U/L 10-35 normal Not Available [address], [address], 09/27/2023 19:44:51 09/24/19 24 09/27/2023 COMPR EHENS MAINE METAB OLIC PANEL ALT 19 U/L 9-46 normal Not Available [address], [address], 09/27/2023 19:44:51 09/24/19 24 09/27/2023 CBC (INCL UDES DIFF/ PLT) white blood cell count 4.6 thous and/u L 3.8-10 .8 normal Not Available [address], [address], 09/27/2023 19:44:51 09/24/19 24 09/27/2023 CBC (INCL UDES DIFF/ PLT) red blood cell count 4.94 katelyn on/uL 4.20-5 .80 normal Not Available [address], [address], 09/27/2023 19:44:51 09/24/19 24 09/27/2023 CBC (INCL UDES DIFF/ PLT) hemoglobin 15.2 g/dL 13.2-1 7.1 normal Not Available [address], [address], 09/27/2023 19:44:51 09/24/19 24 09/27/2023 CBC (INCL UDES DIFF/ PLT) hematocrit 46.1 % 38.5-5 0.0 normal Not Available [address], [address], 09/27/2023 19:44:51 09/24/19 24 09/27/2023 CBC (INCL UDES DIFF/ PLT) MCV 93.3 fL 80.0-1 00.0 normal Not Available [address], [address], 09/27/2023 19:44:51 09/24/19 24 09/27/2023 CBC (INCL UDES DIFF/ PLT) MCH 30.8 pg 27.0-3 3.0 normal Not Available [address], [address], 09/27/2023 19:44:51 09/24/19 24 09/27/2023 CBC (INCL UDES DIFF/ PLT) MCHC 33.0 g/dL 32.0-3 6.0 normal Not Available [address], [address], 09/27/2023 19:44:51 09/24/19 24 09/27/2023 CBC (INCL UDES DIFF/ PLT) RDW 13.0 % 11.0-1 5.0 normal Not Available [address], [address], 09/27/2023 19:44:51 09/24/19 24 09/27/2023 CBC (INCL UDES DIFF/ PLT) platelet count 251 thous and/u L 140-40 0 normal Not Available [address], [address], 09/27/2023 19:44:51 09/24/19 24 09/27/2023 CBC (INCL UDES DIFF/ PLT) MPV 10.0 fL 7.5-12 .5 normal Not Available [address], [address], 09/27/2023 19:44:51 09/24/19 24 09/27/2023 CBC (INCL UDES DIFF/ PLT) absolute neutrophils 2801 cells /uL 1500-7 800 normal Not Available [address], [address], 09/27/2023 19:44:51 09/24/19 24 09/27/2023 CBC (INCL UDES DIFF/ PLT) absolute lymphocytes 1122 cells /uL 850-39 00 normal Not Available [address], [address], 09/27/2023 19:44:51 09/24/19 24 09/27/2023 CBC (INCL UDES DIFF/ PLT) absolute monocytes 419 cells /uL 200-95 0 normal Not Available [address], [address], 09/27/2023 19:44:51 09/24/19 24 09/27/2023 CBC (INCL UDES DIFF/ PLT) absolute eosinophils 198 cells /uL 15-500 normal Not Available [address], [address], 09/27/2023 19:44:51 09/24/19 24 09/27/2023 CBC (INCL UDES DIFF/ PLT) absolute basophils 60 cells /uL 0-200 normal Not Available [address], [address], 09/27/2023 19:44:51 09/24/19 24 09/27/2023 CBC (INCL UDES DIFF/ PLT) neutrophils 60.9 % normal Not Available [facility] [address] [place], [address], 09/27/2023 19:44:51 09/24/19 24 09/27/2023 CBC (INCL UDES DIFF/ PLT) lymphocytes 24.4 % normal Not Available [facility] [address] [place], [address], 09/27/2023 19:44:51 09/24/19 24 09/27/2023 CBC (INCL UDES DIFF/ PLT) monocytes 9.1 % normal Not Available [facility] [address] [address] [place], [address], 09/27/2023 19:44:51 09/24/19 24 09/27/2023 CBC (INCL UDES DIFF/ PLT) eosinophils 4.3 % normal Not Available [facility] [address] [address] [place], [address], 09/27/2023 19:44:51 09/24/19 24 09/27/2023 CBC (INCL UDES DIFF/ PLT) basophils 1.3 % normal Not Available [facility] [address], [address], 09/27/2023 19:44:51 09/24/19 24 09/27/2023 PSA, TOTAL PSA, total 0.77 NG/mL < or = 4.00 normal The total PSA value from this assay syste m is stand ardiz ed again st the WHO stand gerri. The test resul t will be appro ximat beryl 20% lower when dyllan red to the equim olar- stand ardiz ed total PSA ([place]land man Coult er). Dyllan rison of seria l PSA resul ts shoul d be inter prete d with this fact in mind. This test was perfo rmed using the [employer] chemi lumin escen t metho d. Value s obtai wander from diffe rent assay metho ds canno t be used inter huerta eably . PSA level s, regar dless of value , shoul d not be inter prete d as absol hamilton evide nce of the prese nce or absen ce of disea se. Not Available [facility] [address] [place], [address], 09/27/2023 19:44:52 09/24/19 24 09/27/2023 TSH W/REF CALI TO FT4 TSH w/reflex to FT4 1.72 mIU/L 0.40-4 .50 normal Not Available [facility] [address] [place], [address], 09/27/2023 19:44:52 09/24/1909/27/2023 HEMOG LOBIN A1C hemoglobin A1C 5.7 %_of_ total _HGB <5.7 high For someo ne witho ut known diabe minnie, a hemog lobin A1c value betwe en 5.7% and 6.4% is consi stent with predi abete s and shoul d be confi rmed with a follo w-up test. For someo ne with known diabe minnie, a value <7% indic ates that their diabe minnie is well contr olled . A1c targe ts shoul d be indiv idual ized based on durat ion of diabe minnie, age, comor bid condi tions , and other consi derat ions. This assay resul t is consi stent with an incre ased risk of diabe minnie. Curre ntly, no conse nsus exist s regar ding use of hemog lobin A1c for diagn osis of diabe minnie for child tam. This test was perfo rmed on the Jia mar[place] c503 platf orm. Effec tive , a huerta e in test platf orms from the [employer] tect to the Jia marip[place] c503 may have shift ed HbA1c resul ts dyllan red to histo rical resul ts. Based on labor atory valid ation testi ng condu [facility] at [facility] , the Jia platf orm relat maine to the [employer] platf orm had an avera ge incre ase in HbA1c value of < or = 0.3%. This diffe rence is withi n accep maco varia bilit y estab lishe d by the [employer] hemog lobin Stand vibha patton Progr am. Note that not all indiv idual s will have had a shift in their resul ts and direc t dyllan rison s betwe en histo rical and curre nt resul ts for testi ng condu cted on diffe rent platf orms is not recom be d. Not Available [employer] [facility] [address] [place], [address], 09/27/2023 19:44:53 Result Notes None recorded. Problems Name Problem SNOMED Code Status Onset Date Resolution Date Notes Provider Name and Address Organization Details Recorded Time Pain in lower limb 81017987 Completed 09/24/2023 TAMMI Bermeo [address], [place], [address] , [email or web address] 4 09:32:16 Injury of lower leg 677040406 Completed 09/24/2023 TAMMI Bermeo [address], [address], [place], [address] , [employer] 4 09:31:54 Celluliti s 352906191 Completed 09/24/2023 TAMMI Bermeo [address], [address], [place], [address] , [employer] 4 09:31:22 Piriformi s syndrome 397526204 Completed 09/24/2023 TAMMI Bermeo [address], [address], [place], [address] , [employer] 4 09:32:34 Peptic ulcer 54839698 Completed 09/24/2023 TAMMI Bermeo [address], [address], [place], [address] , [employer] 4 09:32:25 Acute sinusitis 57048724 Completed 09/24/[address], [place], [address] , [place] [facility] 4 09:30:51 Blood glucose outside reference range 831284056 Completed 09/24/2023 TAMMI Bermeo [address], [address], [place], [address] , [place] [facility] 4 09:30:58 Asthma 318016849 Active Not Available [facility] 3 08:24:02 Sciatica 82637896 Completed 09/24/[address], [place], [address] , [place] [facility] 4 09:32:41 Gastroeso phageal reflux disease 908993078 Active Not Available [facility] 3 08:24:02 Fluid level behind tympanic membrane Completed 09/24/[address], [place], [address] , [employer] [place] [facility] 4 09:31:45 Low back pain 914955508 Completed 09/24/[address], [place], [address] , [place] [facility] 4 09:32:09 Chest pain 64818577 Completed 09/24/[address], [place], [address] , [place] [facility] 4 09:31:25 Cyst of scalp 538575728 Completed 09/24/[address], [place], [address] , [place] [facility] 4 09:31:36 Knee pain Completed 202009/24/[address], [place], [address] , [facility] [employer] [facility] 4 09:32:03 Bronchiti s 63264927 Completed 09/24/[address], [place], [address] , [facility] [facility] [employer] [facility] 4 09:31:18 Hemosperm ia 85133058 Active Not Available [facility] 3 08:24:03 Sinusitis 54184310 Completed 09/24/[address], [place], [address] , [employer] [facility] [employer] [facility] 4 09:32:50 Osteoarth ritis 342476056 Active 2016 Not Available [facility] 3 08:24:04 Tinea cruris 002357369 Completed 09/24/[address], [place], [address] , [employer] [facility] [employer] [facility] 4 09:32:52 Pharyngit is 280695843 Completed 09/24/[address], [place], [address] , [employer] [facility] [employer] [facility] 4 09:32:30 Disorder of lumbar disc 333303085 Active Not Available [employer] 3 08:24:04 Seasonal allergy 843854053 Active Not Available [facility] 3 08:24:04 Anxiety 09669457 Active Not Available [employer] 3 08:24:04 Cough 21664171 Completed 09/24/[address], [place], [address] , [facility] [employer] [facility] 4 09:31:29 Hyperlipi demia 79840761 Active Not Available [employer] 3 08:24:05 Wheezing 02959420 Completed 09/24/2023 Jaleel Thilker, [employer] [address], [place], [address] , [employer] [facility] 4 09:33:01 Essential hypertens ion 66325640 Active Not Available [facility] 3 08:24:05 Tinnitus 59592839 Completed 201709/24/2023 TAMMI Bermeo [address], [address], [place], [address] , [employer] [facility] 4 09:32:55 Otitis media 92179950 Completed 09/24/2023 TAMMI Bermeo [address], [place], [address] , [employer] [facility] 4 09:32:12 Posterior rhinorrhe a 87626774 Completed 09/24/2023 TAMMI Bermeo [address], [place], [address] , [employer] [facility] 4 09:32:38 Palpitati ons 09025592 Active Not Available [facility] 3 08:24:06 Injury of muscle 52955928 Completed 09/24/2023 TAMMI Bermeo [address], [place], [address] , [employer] [facility] 4 09:31:58 Obese 377310410 Active 2022 Mago San NP [address], [address], [place], [address] , [employer] [facility] [employer] [facility] 3 07:14:11 Pain of left elbow joint 07580701388 239932 Completed 202209/24/2023 TAMMI Bermeo [address], [place], [address] , [employer] [facility] [employer] [facility] 4 09:32:21 Fatigue 92510743 Active 2022 Mago San NP [address], [place], [address] , [employer] [facility] [employer] 3 07:15:08 Testoster one level below reference range 549058485 Active 2022 Mago San NP [address], [address], [place], [address] , [employer] 3 08:10:07 Obstructi ve sleep apnea syndrome 21919353 Active 2023 TAMMI Bermeo [address] [facility] [address] [address], [address], [place], [address] , [employer] [facility] [employer] 4 09:27:56 Pain of right shoulder joint [id number] 806146 Active 2023 TAMMI Bermeo [address], [address], [place], [address] , [employer] 4 09:33:44 Obesity 790865851 Active 2023 TAMMI Bermeo [address], [address], [place], [address] , [employer] 4 09:40:55 Prediabet es 525830588 Active 2023 TAMMI Bermeo [address], [address], [place], [address] , [employer] 4 09:03:04 Problem Notes None recorded. Procedures Surgical History Date Name Laterality Status Provider Name and Address Organization Details Recorded Time 8 colonoscopy completed Not Available [facility] 06/06/19 23 08:19:31 Imaging Results None recorded. Procedure Notes None recorded. Medical Equipment None Reported. Allergies Allergen ID Allergen Name Allergen Category Reaction Reaction Severity Criticality Documentation Date Start Date Code Code System Note Provider Name and Address Organization Details Recorded Time Augmentin medicatio n diarrhea Not available Not available 06/05/2022 82099 2 RxNorm Not Available [facility] 3 08:30:47 Medications Name Sig Start Date Stop Date Status Note LastModified by Organization Details LastModified Time losartan 50 mg tablet TAKE 1 TABLET DAILY 08/19/ 2024 active Not Available Not Available Not Avai lable celecoxib 200 mg capsule Take 1 capsule twice a day by oral route as needed. 11/04 completed Not Available Not Available Not Available cyclobenz aprine 10 mg tablet active Not Available Not Available No t Available amoxicill in 500 mg capsule Take 1 capsule 3 times a day by oral route. active Not Available Not Available No t Available prednison e 10 mg tablet Take by oral route take 4 TABS FOR 2DAYS THEN 3 tabs for 2 days then 2 tabs for 2 days then 1 tab for 2 days . active Not Available Not Available No t Available doxycycli ne hyclate 100 mg capsule Take 1 capsule twice a day by oral route for 10 days. active Not Available Not Available No t Available ipratropi um 0.5 mg-albute rol 3 mg (2.5 mg base)/3 mL nebulizat ion soln Inhale 3 mL 4 times a day by nebuliza tion route. 05/02 completed Not Available Not Available Not Available triamcino lone acetonide 0.5 % topical cream APPLY A THIN LAYER TO THE AFFECTED AREA(S) BY TOPICAL ROUTE 2 TIMES PER DAY active Not Available Not Available No t Available azithromy donald 250 mg tablet Take 2 TABLET EVERY DAY by oral route for 1 day. Than 1 tablet for 4 days. may repeat after 10 days if no improvem ent. 11/04 completed Not Available Not Available Not Available enalapril maleate 20 mg tablet Take 0.5 tablets every day by oral route. 03/07 completed giving headache s Not Available Not Available Not Available Celestone Soluspan 6 mg/mL suspensio n for injection 05/02 completed [facility]#[id number] 17-0720- 01 Not Available Not Available Not Available Phenergan -Codeine 6.25 mg-10 mg/5 mL oral syrup Take 5 mL 10CC EVERY 6 HOURS by oral route NEEDED. 05/02 completed Not Available Not Available Not Available prednison e 20 mg tablet Take 1 tablet every day by oral route. active Not Available Not Available No t Available Rocephin 1 gram solution for injection 05/02 completed ND# [id number] 38- Not Available Not Available Not Available Anucort-H C 25 mg supposito ry UNW AND I 1 SUP REC BID FOR 2 WKS 01/05 completed Not Available Not Available Not Available Nexium 40 mg capsule,d elayed release Take 1 capsule every day by oral route for 90 days. active Not Available Not Available No t Available Aspir-Low 81 mg tablet,de layed release Take 1 tablet every day by oral route for 90 days. 2012 active Not Available Not Available Not Avai lable sulfameth oxazole 800 mg-trimet hoprim 160 mg tablet Take 1 tablet every 12 hours by oral route with meals for 2 days. active Not Available Not Available No t Available tramadol 50 mg tablet TAKE 1 TABLET BY MOUTH EVERY 8 HOURS NEEDED active Not Available Not Available No t Available Kenalog 40 mg/mL suspensio n for injection active Not Available Not Available No t Available Mobic 15 mg tablet Take 1 tablet every day by oral route in the morning for 30 days. 10/01 completed Not Available Not Available Not Available alprazola m 0.25 mg tablet TK 1 T PO TID PRN active Not Available Not Available No t Available magnesium oxide 400 mg (241.3 mg magnesium ) tablet Take 1 tablet twice a day by oral route. 10/[address] REIS S ISAC ES Not Available Not Available Not Available benzonata te 100 mg capsule TK 2 CS PO TID PRN 10/22 completed Not Available Not Available Not Available oseltamiv ir 75 mg capsule TK 1 C PO BID FOR 5 DAYS 10/22 completed Not Available Not Available Not Available clotrimaz ole-betam ethasone 1 %-0.05 % topical cream APPLY TO THE AFFECTED AND SURROUND ING AREAS OF SKIN BY TOPICAL ROUTE 2 TIMES PER DAY IN THE MORNING AND EVENING FOR 2 WEEKS 09/23 completed USES PRN Not Available Not Available Not Available olopatadi ne 0.1 % eye drops INSTILL 1 DROP INTO AFFECTED EYE(S) BY OPHTHALM IC ROUTE 2 TIMES PER DAY AT AN INTERVAL OF 6 TO 8 HOURS 2023 active Not Available Not Available Not Avai lable lansopraz ole 30 mg capsule,d elayed release TAKE 1 CAPSULE TWICE DAILY 2024 active Not Available Not Available Not Avai lable flecainid e 50 mg tablet active Not Available Not Available Not Available losartan 25 mg tablet TAKE 1 TABLET DAILY 01/05 completed Not Available Not Available Not Available mometason e 50 mcg/actua tion nasal spray USE 2 SPRAYS IN EACH NOSTRIL DAILY 09/23 completed Not Available Not Available Not Available monteluka st 10 mg tablet TAKE 1 TABLET DAILY 01/05 completed Not Available Not Available Not Available codeine 10 mg-guaife nesin 100 mg/5 mL oral liquid Take 10 mL every 8 hours by oral route as needed for 5 days. 11/03 completed Not Available Not Available Not Available mupirocin 2 % topical ointment APPLY A SMALL AMOUNT TO THE AFFECTED AREA BY TOPICAL ROUTE 3 TIMES PER DAY active Not Available Not Available No t Available methylpre dnisolone 4 mg tablets in a dose pack TK UTD 12/10 completed Not Available Not Available Not Available albuterol sulfate HFA 90 mcg/actua tion aerosol inhaler Take 2 puffs every 4 hours as needed for as needed for asthma symptoms active Not Available Not Available No t Available diltiazem 60 mg tablet active Not Available Not Available Not Available fluticaso ne propionat e 50 mcg/actua tion nasal spray,arie pension 2 sprays each nostril qhs active Not Available Not Available No t Available Rocephin 500 mg solution for injection active Not Available Not Available No t Available clindamyc in phosphate 1 % topical solution APPLY TO THE SCALP 2 TIMES DAILY NEEDED FLARE 09/23 completed Not Available Not Available Not Available cyclobenz aprine 5 mg tablet Take 1 tablet 3 times a day by oral route as directed for 30 days. active Not Available Not Available No t Available Nasonex 2 PRAYS IN EACH NOSTRIL DAILY 2013 active Not Available Not Available Not Avai lable multivita min 1 PO QD 01/05 completed Not Available Not Available Not Available Symbicort 80 mcg-4.5 mcg/actua tion HFA aerosol inhaler INL 2 PFS PO BID 2023 active Not Available Not Available Not Avai lable Multaq 400 mg tablet Take 1 tablet every day by oral route for 30 days. 01/05 completed Not Available Not Available Not Available Suprep Bowel Prep Kit 17.5 gram-3.13 gram-1.6 gram oral solution 10/22 completed Not Available Not Available Not Available Flulaval Quad 4062-4934 60 mcg (15 mcg x 4)/0.5 mL IM suspensio n ADM 0.5ML UTD active Not Available Not Available No t Available Fluvirin 45 mcg (15 mcg x 3)/0.5 mL intramusc ular suspensio n INJECT 0.5 ML INTRAMUS CULARLY DIRECTED . active Not Available Not Available No t Available Spiriva Respimat 1.25 mcg/actua tion solution for inhalatio n Take 2 puffs once daily active Not Available Not Available No t Available Paxlovid 300 mg (150 mg x 2)-100 mg tablets in a dose pack FOLLOW PACKAGE DIRECTIO NS 08/21 completed Not Available Not Available Not Available Vitals Date Recorded Body mass index (BMI) Body height Body weight Systolic blood pressure Diastolic blood pressure Provider Name and Address Organization Details Last Updated DateTime 02/02/2021 36.5 kg/m2 175.26 cm 992695.3 2 g 130 mm[Hg] 90 mm[Hg] Not Available [facility] 3 08:21:17 Date Recorded Body mass index (BMI) Body height Oxygen saturation Oxygen saturation in Arterial blood by Pulse oximetry Heart rate Body temperature Body weight Systolic blood pressure Diastolic blood pressure Provider Name and Address Organization Details Last Updated DateTime 2 35.7 kg/m2 175.26 cm 97 % 97 % 74 /min 98.6 [degF] 246382. 35 g 137 mm[Hg] 89 mm[Hg] Not Available [facility] 3 08:21:17 Date Recorded Body height Provider Name an d Address Organization Details Last Updated DateTime 02/07/2021 175.26 cm Not Available [facility] 3 08:21:19 Date Recorded Body height Provider Name an d Address Organization Details Last Updated DateTime 08/13/2022 175.26 cm Mago Orourke RN [place] - [place] [employer] [facility] 08/14/2022 15:08:18 Date Recorded Body weight Body mass index (BMI) Body height Body temperature Heart rate Oxygen saturation Oxygen saturation in Arterial blood by Pulse oximetry Respiratory rate Pain severity - 0-10 verbal numeric rating [Score] - Reported Systolic blood pressure Diastolic blood pressure Provider Name and Address Organization Details Last Updated DateTime 4 422200. 28 g 39.5 kg/m2 176.53 cm 97.7 [degF] 85 /min 97 % 97 % 20 /min 2 168 mm[Hg] 88 mm[Hg] Mago Orourke RN [place] - [facility] [employer] 09:03:30 Social History Question Answer Notes LastModified by Organizat ion Details LastModified Time Tobacco Smoking Status Never Smoker Not Available [facility] 06/05/2022 08:19:09 Do You Have An Advance Directive? No Information not available 09/24/2023 What Is Your Level Of Alcohol Consumption? None [id number] Information not available 06/05/2022 Is Blood Transfusion Acceptable In An Emergency? Yes Information not available 09/24/2023 What Is Your Level Of Caffeine Consumption? Moderate [id number] Information not available 06/05/2022 How Much Tobacco Do You Chew? None [id number] Information not available 06/05/2022 What Is Your Code Status? Full Code Information not available 09/24/2023 In The 14 Days Before Symptom Onset, Have You Had Close Contact With A Laboratory-confi rmed COVID-19 While That Case Was Ill? No [id number] Information not available 06/05/2022 In The 14 Days Before Symptom Onset, Have You Had Close Contact With A Person Who Is Under Investigation For COVID-19 While That Person Was Ill? No [id number] Information not available 06/05/2022 Are You Currently Employed? Yes Information not available 09/24/2023 What Type Of Diet Are You Following? REGULAR [id number] Information not available 06/05/2022 Do You Or Have You Ever Used E-cigarettes Or Vape? 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 No Information not available 09/24/2023 Are There Any Guns Present In Your Home? Yes Information not available 09/24/2023 Do You Use Insect Repellent Routinely? Yes Information not available 09/24/2023 Where Do You Live? [facility] Information not available 09/24/2023 Do You Have A Medical Power Of News Intern? No Information not available 09/24/2023 How Many Children Do You Have? -1 Information not available 09/24/2023 Do You Have Any Pets? Yes Information not available 09/24/2023 What Is Your Relationship Status? Single Information not available 09/24/2023 Do You Use Your Seat Belt Or Car Seat Routinely? Yes Information not available 09/24/2023 Do You Have Smoke And Carbon Monoxide Detectors In Your Home? Yes Information not available 09/24/2023 Are You Passively Exposed To Smoke? No [id number] Information not available 06/05/2022 Do You Or Have You Ever Used Smokeless Tobacco? Never Used Smokeless Tobacco [id number] Information not available 06/05/2022 Are There Any Smokers In Your House? No Information not available 09/24/2023 How Much Tobacco Do You Smoke? No MIGRATION.[id number] Information not available 06/05/2022 Do You Participate In Social Media? Yes Information not available 09/24/2023 Do You Feel Stressed (tense, Restless, Nervous, Or Anxious, Or Unable To Sleep At Night)? [id number] Information not available 09/24/2023 Do You Use Sunscreen Routinely? Yes Information not available 09/24/2023 Have You Recently Traveled Abroad? No Information not available 09/24/2023 Sex: Male Functional Status Question Answer Note LastModified by Organizat ion Details LastModified Time What is your exercise level? Occasional Information not available 09/24/2023 Mental Status None recorded. Family History Relationship Description Onset Age of this Age Resolved Age Notes LastModified by Organization Details LastModified Time Mother Myocardial infarction 50 74 [id number] Not available 06/05/2022 08:19:33 Medical History Condition Response OBESITY Y ASTHMA Y PAIN Y HYPERTENSION Y ANXIETY DISORDER Y Immunizations Vaccine Type Date Status Note Provider Nam e and Address Organization Details Recorded Time COVID-19, mRNA, LNP-S, PF, 100 mcg/0.5mL dose or 50 mcg/0.25mL dose 1 completed Not Available [facility] 06/05/2022 08:30:36 COVID-19, mRNA, LNP-S, PF, 100 mcg/0.5mL dose or 50 mcg/0.25mL dose 1 completed Not Available [facility] 06/05/2022 08:30:36 Influenza, split virus, trivalent, preservative 4 completed Not Available [facility] 06/05/2022 08:30:36 Influenza, split virus, trivalent, preservative 4 completed Not Available [facility] 06/05/2022 08:30:36 Tdap 2 completed Not Available [facility] 06/05/2022 08:30:37 Past Encounters Encounter ID Performer Location Encounter Start Date Encounter Closed Date Diagnosis/Indication Diagnosis SNOMED-CT Code Diagnosis ICD10 Code Diagnosis Note [id number] [facility] Дмитрий [address] [place] [address] 1 06/13/2020 00:00:00 06/13/2020 18:58:23 [id number] [facility] [address] [address] 06/21/2020 00:00:00 06/21/2020 09:42:34 [id number] [facility] Д[address] [place] [address] 02/02/2021 00:00:00 02/02/2021 08:24:58 [id number] [facility] Дмитрий [address] [place], [place] [address] [place] [address] 02/07/2021 00:00:00 02/07/2021 17:11:20 [id number] [facility] Д[address] [facility] [facility] [place] [address] 10/10/2021 00:00:00 10/10/2021 16:54:10 [id number] [facility] [address] [address] 08/13/2022 15:46:37 08/13/2022 16:49:57 Obese 478866348 E66.9 Diet and exercise. Essential hypertension 41189813 I10 Losartan 50 mg po daily. <2 gm sodium diet Pain of le ft elbow joint 3038146103 6752581 M25.522 Patient wants to see ortho Dr. Nobles in [place]. Gastroesop hageal reflux disease 064488519 K21.9 Prevacid 30 mg po bid. Diet mods. Asthma 059153755 J45.90 9 Symbicort and albuterol. Fatigue 10943427 R53.83 Pt wants testostero ne checked. Anxiety 68468439 F41.9 Alprazolam 0.25 mg po prn. Hyperlipidemia 03270627 E78.5 low fat diet. Anemia screening 0387727 07 Z13.0 Diabetes m ellitus screening 311146887 Z13.1 Thyroid di sorder screening 076294574 Z13.29 [id number] [facility] [address] [address] 09/24/2023 08:48:42 09/24/2023 10:51:04 Obstructive sleep apnea syndrome 59792044 G47.33 Pain of ri ght shoulder joint 6629187576 7294120 M25.511 Patient states that he has torn labrum, torn rotator cuff. Offered ortho referral, pt declined. Offered x-ray, pt declined. Patient would like hydrocmaco e, advised that this is not appropriat e for this pain. Testostero ne level below reference range 521881226 R89.1 Screening for malignant neoplasm of prostate 707500203 Z12.5 Obesity 911111093 E66.9 Asthma 634224104 J45.90 9 Essential hypertension 67256618 I10 Health Concerns Section Related Observation LastModified by Organization Detai ls LastModified Time None Recorded Concern Status LastModified by Organization Details LastModified Time None Recorded Advance Directives Directive N: Payers Encounter Date Sequence Insurance Name Policy Number Policy [place] Covered Member ID [place] Member ID Guarantor Name 08/13/2022 2 [facility] [id number] Jose Anderson [id number] Jose Anderson 09/24/2023 2 [place] Jose Anderson [id number] Jose Anderson 09/24/2023 1 [place] [id number] Jose Anderson [id number] Jose Anderson Notes Date Note Type Note Provider Name and Address Organization Details Recorded Time 08/13/2022 text/html Computers down. Pt seen on paper req. Not Available [facility] 08/21/2022 08:29:05 09/24/2023 text/html Jose Anderson i s a 58 year old male patient here today to transition care. He was previously under the care of Mago San DNP. He has lipomas on his back that he has concerns with. He has pains in his right shoulder. He has seen an orthopedist in 2006 and was supposed to have surgery and never did. The pain is now changing and he has sporadic throbbing in random places. He would like to see an orthopedist again. He notes ice and heat are beneficial, but ibuprofen/naproxen have not been helping. Repetitive motion (scrubbing a sears) are painful. He had low testosterone 08/22/22 and blood and semen, saw urology, has scope in bladder and nothing was found. Patient was not satisfied with this urologist. Started taking natural testosterone boost that he found online. He has been having headaches that wake him up at night since March. He noticed naproxen and Excedrin helps these. He will use ice packs on his neck which will help. Likely related to sleep apnea His blood pressure has been elevated. He notes running 160s/110s. He felt that his losartan was causing his headaches so he trailed without it and didn't notice a change in headaches so is taking it again. BP has normalized 140s/90s. He has noticed increased difficulty breathing when sleeping. He describes this as a reversed snore . He believes his uvula is too long. He admits that he was diagnosed with sleep apnea 10 years ago and told a mouth guard was more beneficial then a CPAP. [place] Sleepiness scale score is 9 History of PAC, saw Dr. Gómez He has a history of hyperlipidemia. Colonoscopy: q5 years with Dr. Negron shot: declinesCOVID vaccines: 2020, 2020Tdap: 09/24/2023 Jaleel Koenig, SHEET TESTER [address] [facility] [address], [place], [address], [place] [facility] [employer] [facility] 10/01/2023 08:54:54
--- OUTSIDE RECORDS SUMMARY | 2024-07-27 03:02 | XMS_ITS | Encounter Summary ---
Author Organization [facility] Address [address] [place] [address] Care Team Providers Care Lead Installer Name Role Phone Unavailable Primary Care Provider Unavailabl e Encounter Details Date Type Department Care Team (Late st Contact Info) Description 08/16/2022 Lab Requisition [facility] [address] [place] [id number] Jorge Barone MD [address] [place] [address] Social History Tobacco Use Types Packs/Day Years Used Date Smoking Tobacco: Never Assessed Sex and Gender Information Value Date Recorded Sex Assigned at Not on file Legal Sex Male 6:17 AM [employer] Gender Identity Not on file Sexual Orientation Not on file documented as of this encounter Plan of Treatment Not on file documented as of this encounter Procedures Procedure Name Priority Date/Time Associated Diagnosis Comments DERMATOPATHOLOGY Routine 08/14/2022 12:0 0 AM CDT documented in this encounter Results * DERMATOPATHOLOGY (08/14/2022 12:00 AM CDT) Case Report Dermatopathology Report Case: [id number] Authorizing Provider: Jorge Barone MD Collected: 08/14/2022 12:00 AM Ordering Location: [facility] Received: 08/16/2022 07:12 AM Pathologist: Elayne Naqvi MD Specimens: A) - Skin, left abdomen B) - Skin, right abdomen C) - Skin, right scalp 4:17 PM CDT DERMATOPATHOLOGY LABORATORY Final Diagnosis Specimen A. SKIN, left abdomen: NEUROFIBROMA (D36.10) Specimen B. SKIN, right abdomen: NEUROFIBROMA (D36.10) Specimen C. SKIN, right scalp: HEMANGIOMA (D18.01) DERMAL SCAR (L90.5) 3 4:17 PM [facility] D[facility]ATORY Clinical History A-C: Irr nevus Path: [id number], [id number], [id number] 3 4:17 PM [facility] DERMAT[facility]ORATORY Gross Description Specimen A: Received is one formalin filled container labeled with the patient's name and designated left abdomen. The specimen consists of a shave biopsy measuring 9x5x3 mm. Jar 0. Specimen B: Received is one formalin filled container labeled with the patient's name and designated right abdomen. The specimen consists of a shave biopsy measuring 7x6x3 mm. Jar 0. Specimen C: Received is one formalin filled container labeled with the patient's name and designated right scalp. The specimen consists of a shave biopsy measuring 6x6x1 mm. Jar 0. 3 4:17 PM [facility] DERMATOP[facility]ORATORY Microscopic Description Specimen A. SKIN, left abdomen: Sections show a proliferation of spindled and S-shaped cells within the dermis. The stromal collagen is delicate and pale. Specimen B. SKIN, right abdomen: Sections show a proliferation of spindled and S-shaped cells within the dermis. The stromal collagen is delicate and pale. Specimen C. SKIN, right scalp: In the dermis, there are dilated vascular spaces surrounded by widely spaced endothelial cells. There are fibroblasts and collagen bundles oriented parallel to the skin surface with elongated blood vessels, some of which are oriented perpendicular to the skin surface. 3 4:17 PM [facility] DERMATOPATHOLOGY LABORATORY Disclaimer An external and internal positive and negative controls are appropriate for the histochemical, immunohistochemical and immunofluorescence stain(s) in this case (if any), except where stated explicitly. The performance characteristics of the stain(s) cited in this report were developed and its performance characteristic determined by the Dermatopathology Laboratory at [facility], directed by Dr. Ramila Ocampo. These tests need not be, and therefore are not, approved by the [place] Food and Drug Administration. The tests are used for clinical purposes. Billing Codes Specimen Charges Stain Charges 72736 [id number] 23310 1 1 1 3 4:17 PM CDT DERMATOPATHOLOGY LABORATORY Embedded Images 4:17 PM CDT DERMATOPATHOLOGY LABORATORY Pathology/Cytology TISSUE SPECIMEN FROM SKIN / Unknown 08/14/2022 08/16/2022 7:12 AM CDT Miscellaneous samples (specimen) TISSUE SPECIMEN FROM SKIN / Unknown 08/14/2022 08/16/2022 7:12 AM CDT Miscellaneous samples (specimen) TISSUE SPECIMEN FROM SKIN / Unknown 08/14/2022 08/16/2022 7:12 AM CDT us Jorge Barone MD LAB - PATHOLOGY/CYTOLOGY ORDER HAFSA Final Result DERMATOPATHOLOGY LABORATORY [facility] - Department of Dermatology [facility] [address] [place] [address], [address] [phone] documented in this encounter Visit Diagnoses Not on filedocumented in this encounter
--- NOTE | 2024-07-27 07:19 | WPDANESEPPF ---
Anes - Initial Pre Proc Eval Procedure: Operation Date: 07/27/24 08:30 Proposed Procedures p Colonoscopy - Job Brand MD Date/Time: 07/27/24 07:19 Surgeon: Job Brand MD Pre Op Diagnosis: Personal history of colon polyps, unspecified Patient Data Age: 59 Gender: M Height: 1.78 m Weight: 120.45 kg Allergies Allergy/AdvReac Type Severity Reaction Status Date / Time amoxicillin (From Augmentin) AdvReac Mild unknown Verified 07/27/24 07:19 clavulanic acid (From AdvReac Mild unknown Verified 07/27/24 07:19 Augmentin) AMOXICILLIN TRIHYDRATE AdvReac Unknown LARGE AMT Uncoded 07/27/24 07:19 DIARRHEA POTASSIUM CLAVULANATE AdvReac Unknown LARGE AMT Uncoded 07/27/24 07:19 DIARRHEA Home Medications ?Medication ?Instructions ?Recorded ?Confirmed ?Type albuterol sulfate 200 mcg capsule 200 mcg inhalation .prn 06/24/24 07/15/24 History with inhalation device alprazolam 0.5 mg tablet (Xanax) 0.5 mg PO QHS PRN anxiety 06/24/24 07/15/24 History aspirin 81 mg tablet,delayed 81 mg PO DAILY 06/24/24 07/15/24 History release (Adult Low Dose Aspirin) budesonide-formoterol HFA 80 2 inh inhalation BID #10.2 grams 06/24/24 07/15/24 Rx mcg-4.5 mcg/actuation aerosol inhaler (Symbicort) clotrimazole 1 % topical cream 1 applic topical Q12H 06/24/24 07/15/24 History cyclobenzaprine 10 mg tablet 10 mg PO TID 06/24/24 07/15/24 History lansoprazole 30 mg capsule,delayed 30 mg PO BID #180 caps 06/24/24 07/15/24 Rx release losartan 100 mg tablet 100 mg PO DAILY #90 tabs 06/24/24 07/15/24 Rx mometasone 50 mcg/actuation nasal 2 spray intranasal BID #17 grams 06/24/24 07/15/24 Rx spray (Nasonex 24hr Allergy) mupirocin calcium 2 % topical cream 1 applic topical BID 06/24/24 07/15/24 History olopatadine 0.1 % eye drops 1 drp EACH EYE BID #5 mL 06/24/24 07/15/24 Rx Patient hx anesthesia problems: none Family hx anesthesia problems: none Results Review: All pre-operative results and documents have been reviewed as part of the pre-operative evaluation. [facility] Past Medical History Medical History Hypertension Migraine GERD (gastroesophageal reflux disease) Asthma Arthritis Anxiety Allergies Surgical History Surgical History H/O exploratory laparotomy H/O endoscopy Hx of colonoscopy Family History Family History Mother Breast cancer Diabetes mellitus Heart disease Hypertension Father Diabetes mellitus Grandparent Ovarian cancer Heart disease Hypertension Social History Social History Smoking status: Never smoker Alcohol intake: never Drinks per week: 4 Substance use: never Substance use type: does not use Do You Feel Safe in your Home?: Yes Lack of Transportation: No Lack of Food: Never True Current Housing: I Have Housing Concerned About Future Housing: No Difficulty Paying Gas/Electric Bills: No Difficulty Paying for Meds: No Currently Unemployed: No Difficulty w/ Childcare or Family Care: No Living arrangements: with roommate(s) Occupation/Education: occupation Gender identity (if verbalized by the patient): Male Spiritual care concerns: No Agree to blood products: Yes Anes - Eval Final PreProcedure Day of Procedure 07/27/24 07:19 Patient weight: obese Heart: regular rate and rhythm Lungs: clear to auscultation Airway: Mallampati scale class II Neurological: alert and oriented Last oral intake: >/= 8 hours ASA classification: III Emergent: no Anesthetic plan: proceed Anesthesia type and monitoring: general GIVS and standard monitoring Results Review: All pre-operative results and documents have been reviewed as part of the pre-operative evaluation. Informed Consent: The patient's anesthetic plan and its attendant risks and benefits were discussed with the patient/family/POA. Questions were solicited and answers provided to the satisfaction of the patient/family/POA.
[2024-07-27 07:21] VITALS: BP 161/104; PULSE 82; RESP 16; TEMP 35.8; O2SAT 96; BMI 38.3
--- NOTE | 2024-07-27 07:22 | WPDANESEPPF ---
Anes - Initial Pre Proc Eval Procedure: Operation Date: 07/27/24 08:30 Proposed Procedures p Colonoscopy - Job Brand MD Date/Time: 07/27/24 07:22 Surgeon: Job Brand MD Pre Op Diagnosis: Personal history of colon polyps, unspecified Patient Data Age: 59 Gender: M Height: 1.78 m Weight: 120.45 kg Allergies Allergy/AdvReac Type Severity Reaction Status Date / Time amoxicillin (From Augmentin) AdvReac Mild unknown Verified 07/27/24 07:19 clavulanic acid (From AdvReac Mild unknown Verified 07/27/24 07:19 Augmentin) AMOXICILLIN TRIHYDRATE AdvReac Unknown LARGE AMT Uncoded 07/27/24 07:19 DIARRHEA POTASSIUM CLAVULANATE AdvReac Unknown LARGE AMT Uncoded 07/27/24 07:19 DIARRHEA Home Medications ?Medication ?Instructions ?Recorded ?Confirmed ?Type albuterol sulfate 200 mcg capsule 200 mcg inhalation .prn 06/24/24 07/15/24 History with inhalation device alprazolam 0.5 mg tablet (Xanax) 0.5 mg PO QHS PRN anxiety 06/24/24 07/15/24 History aspirin 81 mg tablet,delayed 81 mg PO DAILY 06/24/24 07/15/24 History release (Adult Low Dose Aspirin) budesonide-formoterol HFA 80 2 inh inhalation BID #10.2 grams 06/24/24 07/15/24 Rx mcg-4.5 mcg/actuation aerosol inhaler (Symbicort) clotrimazole 1 % topical cream 1 applic topical Q12H 06/24/24 07/15/24 History cyclobenzaprine 10 mg tablet 10 mg PO TID 06/24/24 07/15/24 History lansoprazole 30 mg capsule,delayed 30 mg PO BID #180 caps 06/24/24 07/15/24 Rx release losartan 100 mg tablet 100 mg PO DAILY #90 tabs 06/24/24 07/15/24 Rx mometasone 50 mcg/actuation nasal 2 spray intranasal BID #17 grams 06/24/24 07/15/24 Rx spray (Nasonex 24hr Allergy) mupirocin calcium 2 % topical cream 1 applic topical BID 06/24/24 07/15/24 History olopatadine 0.1 % eye drops 1 drp EACH EYE BID #5 mL 06/24/24 07/15/24 Rx Patient hx anesthesia problems: none Family hx anesthesia problems: none Results Review: All pre-operative results and documents have been reviewed as part of the pre-operative evaluation. [facility] Past Medical History Medical History (Updated 07/27/24 @ 07:23 by Porter Castro MD) ELEAZAR (obstructive sleep apnea) Hypertension Migraine GERD (gastroesophageal reflux disease) Asthma Arthritis Anxiety Allergies Surgical History Surgical History H/O exploratory laparotomy H/O endoscopy Hx of colonoscopy Family History Family History Mother Breast cancer Diabetes mellitus Heart disease Hypertension Father Diabetes mellitus Grandparent Ovarian cancer Heart disease Hypertension Social History Social History Smoking status: Never smoker Alcohol intake: never Drinks per week: 4 Substance use: never Substance use type: does not use Do You Feel Safe in your Home?: Yes Lack of Transportation: No Lack of Food: Never True Current Housing: I Have Housing Concerned About Future Housing: No Difficulty Paying Gas/Electric Bills: No Difficulty Paying for Meds: No Currently Unemployed: No Difficulty w/ Childcare or Family Care: No Living arrangements: with roommate(s) Occupation/Education: occupation Gender identity (if verbalized by the patient): Male Spiritual care concerns: No Agree to blood products: Yes Anes - Eval Final PreProcedure Day of Procedure 07/27/24 07:22 Patient weight: obese Heart: regular rate and rhythm Lungs: clear to auscultation Airway: Mallampati scale class II Neurological: alert and oriented Last oral intake: >/= 8 hours ASA classification: III Emergent: no Anesthetic plan: proceed Anesthesia type and monitoring: general GIVS and standard monitoring Results Review: All pre-operative results and documents have been reviewed as part of the pre-operative evaluation. Informed Consent: The patient's anesthetic plan and its attendant risks and benefits were discussed with the patient/family/POA. Questions were solicited and answers provided to the satisfaction of the patient/family/POA.
[2024-07-27] MEDS: LACTATED RINGERS 1,000 ML 150 ML IV CONT (07:31)
--- NOTE | 2024-07-27 08:10 | PM.HPGS ---
History of Present Illness History of Present Illness Consent: Risks, benefits, and alternatives have been discussed and questions answered. Patient agrees to proceed with procedure. Chief complaint: Personal history of colon polyps, unspecified Narrative: Jose Anderson is a 59 year old male with polyp 6 years ago Review of Systems Review of Systems: All systems reviewed & are unremarkable except as noted in HPI and below PMFSH Past Medical History Medical History (Updated 07/27/24 @ 08:11 by Job Brand MD) Colon polyp ELEAZAR (obstructive sleep apnea) Hypertension Migraine GERD (gastroesophageal reflux disease) Asthma Arthritis Anxiety Allergies Surgical History Surgical History H/O exploratory laparotomy H/O endoscopy Hx of colonoscopy Family History Family History Mother Breast cancer Diabetes mellitus Heart disease Hypertension Father Diabetes mellitus Grandparent Ovarian cancer Heart disease Hypertension Social History Social History Smoking status: Never smoker Alcohol intake: never Drinks per week: 4 Substance use: never Substance use type: does not use Do You Feel Safe in your Home?: Yes Lack of Transportation: No Lack of Food: Never True Current Housing: I Have Housing Concerned About Future Housing: No Difficulty Paying Gas/Electric Bills: No Difficulty Paying for Meds: No Currently Unemployed: No Difficulty w/ Childcare or Family Care: No Living arrangements: with roommate(s) Occupation/Education: occupation Gender identity (if verbalized by the patient): Male Spiritual care concerns: No Agree to blood products: Yes Meds Home Medications and Allergies Home Medications ?Medication ?Instructions ?Recorded ?Confirmed ?Type albuterol sulfate 200 mcg capsule 200 mcg inhalation .prn 06/24/24 07/15/24 History with inhalation device alprazolam 0.5 mg tablet (Xanax) 0.5 mg PO QHS PRN anxiety 06/24/24 07/15/24 History aspirin 81 mg tablet,delayed 81 mg PO DAILY 06/24/24 07/27/24 History release (Adult Low Dose Aspirin) budesonide-formoterol HFA 80 2 inh inhalation BID #10.2 grams 06/24/24 07/27/24 Rx mcg-4.5 mcg/actuation aerosol inhaler (Symbicort) clotrimazole 1 % topical cream 1 applic topical Q12H 06/24/24 07/27/24 History cyclobenzaprine 10 mg tablet 10 mg PO TID 06/24/24 07/27/24 History lansoprazole 30 mg capsule,delayed 30 mg PO BID #180 caps 06/24/24 07/27/24 Rx release losartan 100 mg tablet 100 mg PO DAILY #90 tabs 06/24/24 07/27/24 Rx mometasone 50 mcg/actuation nasal 2 spray intranasal BID #17 grams 06/24/24 07/27/24 Rx spray (Nasonex 24hr Allergy) mupirocin calcium 2 % topical cream 1 applic topical BID 06/24/24 07/27/24 History olopatadine 0.1 % eye drops 1 drp EACH EYE BID #5 mL 06/24/24 07/27/24 Rx Allergies Allergy/AdvReac Type Severity Reaction Status Date / Time amoxicillin (From Augmentin) AdvReac Mild unknown Verified 07/27/24 07:19 clavulanic acid (From AdvReac Mild unknown Verified 07/27/24 07:19 Augmentin) AMOXICILLIN TRIHYDRATE AdvReac Unknown LARGE AMT Uncoded 07/27/24 07:19 DIARRHEA POTASSIUM CLAVULANATE AdvReac Unknown LARGE AMT Uncoded 07/27/24 07:19 DIARRHEA Vital Signs Vital Signs - 24 hr 07/27/24 07:21 Temperature 96.5 F L Pulse Rate 82 Respiratory Rate 16 Blood Pressure 161/104 H Pulse Oximetry 96 Oxygen Delivery Room Air Exam Const: General: comfortable and no acute distress HENMT: Face/Nose/Sinus: Normal nares present Eyes: General: appearance normal, both eyes and all related structures Neck: Neck: no JVD Resp: Auscultation: clear to auscultation bilaterally Cardio: Rate: regular rate Rhythm: regular rhythm GI: Inspection: non-distended GI Palp: Yes Soft to palpation Skin: General skin exam: normal color Neuro: General: gait normal Speech: normal speech Extrem: General: normal to inspection Psych: Mental Status: mental status grossly normal Assessment and Plan Assessment and plan (1) Colon polyp: Code(s): K63.5 - Polyp of colon Status: Acute Assessment and Plan: colonoscopy
[2024-07-27 08:29] VITALS: BP 143/93; PULSE 79; RESP 19; O2SAT 97
[2024-07-27 08:39] VITALS: BP 127/91; PULSE 66; RESP 17; O2SAT 95
[2024-07-27 08:49] VITALS: BP 139/94; PULSE 64; RESP 17; O2SAT 95
== END 2024-07-27 08:57 | disposition home or self-care (01) ==
PROVIDERS: PCP Nurse Practitioner Family; Referring Provider Nurse Practitioner Family; Visit Provider Internal Medicine Gastroenterology
PROC: 0DJD8ZZ Inspection of Lower Intestinal Tract, Via Natural or Artificial Opening Endoscopic (ICD-10-PCS; CPT 45378; principal; 2024-07-27 08:30)
DX: Z12.11 Encounter for screening for malignant neoplasm of colon (principal); K63.5 Polyp of colon; K57.30 Diverticulosis of large intestine without perforation or abscess without bleeding; K64.8 Other hemorrhoids
CPT/HCPCS: 45380; 88305; J2003; J2704; J7120